=== PATIENT | female | born 1930 | race Caucasian/White ===

== ENCOUNTER 2017-09-03 06:37 | Day surgery (SDC) | payer MEDICARE ==
[~2017-09-03] VITALS: Ht 167.6 cm; Wt 54.7 kg
[~2017-09-03 06:37] MED LIST: ATOR20TA42; PREV30CA36
[2017-09-03] MEDS ORDERED: IOHEXOL 350 MG/ML 100 ML BTL (for Cath Lab) OTHER ONE (06:38)
[2017-09-03] MEDS ORDERED: IOHEXOL 350 MG/ML 10 ML VIAL (for RAD DIAG) IVCONTRAST ONE (06:38)
[2017-09-03] MEDS ORDERED: NS 1000P @30 MLS/HR (KVO) IV SCH (07:00)
[2017-09-03 07:29] VITALS: BP 124/85; PULSE 82; RESP 18; TEMP 98.1; O2SAT 93
[2017-09-03] MEDS ORDERED: diphenhydrAMINE HCL 50 MG/ML VIAL IV PUSH SCH (07:30)
[2017-09-03] MEDS ORDERED: METO25TA3 PO (07:37)
[2017-09-03] MEDS ORDERED: ASPI81CH37 CHEW (07:37)
[2017-09-03] MEDS ORDERED: FURO20TA PO (07:37)
[2017-09-03] MEDS ORDERED: CALC600T10 PO (07:37)
[2017-09-03] MEDS ORDERED: VITA250T3 PO (07:37)
[2017-09-03] MEDS ORDERED: CETI10CA3 (07:37)
[2017-09-03] MEDS ORDERED: OCUTTAB (07:37)
[2017-09-03] MEDS ORDERED: MULT-207 PO (07:37)
[2017-09-03] MEDS ORDERED: FLUT50SP EACH NARE (07:37)
[2017-09-03] MEDS ORDERED: FOLI400T PO (07:37)
[2017-09-03] MEDS ORDERED: LANS30CA PO (07:37)
[2017-09-03] MEDS ORDERED: ATOR10TA15 PO (07:37)
--- NOTE | 2017-09-03 09:41 | CATHPROC ---
[employer] HIS Report Study Information Study Number Admission Scheduled Start Study Start [id number] Sep 03 2017 6:37AM 09/03/2017 Sep 03 2017 8:36AM [place] Service Cardiac Catheterization Admit Source Facility Department Other [facility] Physician and Clinical Staff Initial Anatoliy Parker Dental Hygiene Professor Alfred Teague,RN Dental Hygiene Professor Judah Lacy,DERRELL Recorder Jaswinder, [place],LOOPING MACHINE OPERATOR TECH2 Scrub Viry Angel,RT(R) (BS) Procedures Performed Procedure Location (Site) Vessel Name Coronary Angiograms LCA Left Coronary Coronary Angiograms RCA Right Coronary Equipment Time Machine Assembler Supervisor Description Size Mfg Part Number Used/Scraped ARROW INTERNATIONAL CATHETER, FR.7 BALLOON [id number] 08:44 FR 7 Used INC. WEDGE PRESSURE *[id number] TRANSDUCER, TRAllPeersAVE [id number] 08:44 NICOLE ANDRADE * Used W/STOCKCOCK *[id number] [id number] *[id number] 534-620T *[id number] 534-621T *[id number] 08:44 MEDLINE INDUSTRIES PACK, CCL CUSTOM * Used *[id number] 08:44 [email or web address] PACER PEN, SKIN DUAL W/ RULER * Used *[id number] 08:45 [employer] MEDICAL SHEATH, FR6.5 PRELUDE 11CM FR 6.5 038ACT Used *[id number] 08:44 MERIT MEDICAL WIRE, 3MMJ .035 180CM 180CM Used *[id number] 09:15 MERIT MEDICAL WIRE, EXCHANGE 260CM 3MMJ 260CM Used *[id number] 08:44 NAMIC MANIFOLD, 2 PORT * Used *[id number] 08:44 NAMIC MANIFOLD, 4 PORT * Used *[id number] 08:44 NYCOMED OMNIPAQUE, 350 MG, 150ML 150ML [id number] Used [id number] 08:44 [employer] MED[employer] BLANKET,WARM AIR CCL * Used *[id number] 08:44 TERUMO MEDICAL SHEATH, FR7 TERUMO (10CM) FR 7 Used *[id number] 09:19 VASCULAR SOLUTIONS PIGTAIL DUAL LUMEN CATHETER FR 6 6968 *[id number] Used History: Current Medications Medication Dosage/Unit Route Frequency Last Date/Time Taken ASA Statins (any) LASIX LOPRESSOR History: Allergies Allergy Reaction shellfish derived Anaphylaxis fish oil History: Risk Factors Family History of Hypertension Dyslipidemia Previous [place] Previous Heart Failure Premature CAD Yes Yes Yes No No Prior Valve Prior PCI Prior CABG Surgery No No No Cerebrovascular Peripheral Artery Chronic Lung On Dialysis Diabetes Disease Disease Disease No No No No No History: Stress Tests Stress or Imaging Studies Performed No History: Other Current Smoker Method Quit Packs a Day Years Used Pack Years No Cigarettes 40 Years Ago 1 3 3 Labs Hgb (g/dl) Hct (%) WBC (l/cumm) Platelets (thousands) 11.60-17.00 35.00-51.00 4.00-11.00 150.00-450.00 12.2 37.6 6.3 202 Glucose (mg/dl) BUN (mg/dl) Creatinine (mg/dl) BUN:Creatinine (1:x) 74.00-106.00 7.00-18.00 0.50-1.30 10.00-20.00 127 22 0.8 27.5 Na (meq/l) K (meq/l) Cl (meq/l) CO2 (mmol/L) Ca (mg/dl) 136.00-145.00 3.50-5.10 98.00-107.00 21.00-32.00 8.50-10.10 143 4.7 102 27 9.1 PT (sec) INR (PTT:PT) 9.80-11.60 0.90-1.10 10.5 1 CPK-MB (ng/ML) 0.50-3.60 Not Drawn Medication Medication Total Dose (Bolus/Oral) Medication Total Dosage/Unit FENTANYL 50 mcg VERSED 2 mg Medications (Bolus/Oral) Medication Time Given Dosage/Unit Administered By Reason VERSED 09/03/2017 8:56:39 AM 1 mg Alfred Teague 1 mg VERSED given in lab by Alfred Teague RN in Left Antecubital via Peripheral IV. Ordered by Anatoliy Dominguez. FENTANYL 09/03/2017 8:57:52 AM 25 mcg Alfred Teague 25 mcg FENTANYL given in lab by Alfred Teague RN in Left Antecubital via Peripheral IV. Ordered by Anatoliy Stratton. VERSED 09/03/2017 9:03:02 AM 1 mg Alfred Teague 1 mg VERSED given in lab by Alfred Teague RN in Left Antecubital via Peripheral IV. Ordered by Anatoliy Dominguez. FENTANYL 09/03/2017 9:04:14 AM 25 mcg Alfred Teague 25 mcg FENTANYL given in lab by Alfred Teague RN in Left Antecubital via Peripheral IV. Ordered by Anatoliy Stratton. Medication (Drip) Medication Time Given Dosage/Unit Concentration/Unit Diluent (ml) Solution IV Solutions 09/03/2017 8:40:56 AM 0 mL (IV) 500 NaCl .9 Patient arrived on IV Solutions in Left Antecubital via Peripheral IV. Pump/Drip Flow = 20 ml/hr usin g NaCl .9. Initial Case Assessment Cardiovascular HR Rhythm NIBP Chest Pain 74 sr 146/78 0 Neurological State Oriented to time-place- Alert Moves all extremities person Respiration - General Respiration Rate SpO2 (%) (B/min) 10 98 Final Case Assessment Cardiovascular HR Rhythm NIBP Chest Pain 86 sr 129/73 0 Circulatory - Right Pulses Dorsalis Pedis Femoral 3 3 Scale (0,1,2,3,4,d) Circulatory - Left Pulses Dorsalis Pedis Femoral 3 3 Scale (0,1,2,3,4,d) Neurological State Oriented to time-place- Alert Moves all extremities person Respiration - General Respiration Rate SpO2 (%) O2 (lpm) (B/min) 14 96 2 Chronological Log Time Study Chronological Log 8:40:25 Patient arrived via Bed. Patient premedicated for shellfish allergy. 8:40:26 Patient Name, D.O.B, / Armband Verified By R.N. 8:40:26 Consent signed by the physician and the patient and verified by the [facility] staff. 8:40:27 Pre-op and post- op instructions given; patient acknowledges understanding of instructions. 8:40:44 Presedation assessment performed by [facility] RN. 8:40:48 Patient has been NPO for Less than 6Hrs. 8:40:50 Skin Breakdown-none 8:40:51 Patient Warmer Placed on the Table. 8:40:55 A # 20 IV was noted in the Antecubital (left). Grade = patent 8:40:56 Patient arrived on IV Solutions in Left Antecubital via Peripheral IV. Pump/Drip Flow = 20 m l/hr using NaCl .9. 8:40:57 History and physical on the chart or being dictated. Vitals capture started with the following parameters, Patient=Adult, Interval=5 min, Initial Pre djepm=905 mmHg, 8:44:09 Deflation Rate=5 mmHg, Cuff placed on Right Arm 8:44:45 HR=84 bpm, BAIA=629/78 mmhg, SpO2=96 %, Resp=12 B/min Assessment: Initial Case, HR=74 BPM, Rhythm=sr, ZSZR=024/78 mmhg, Chest Pain=0 8:44:58 Neurological: State=Alert, Ox3, MARTIN Respiration: Resp=10 B/min, SpO2=98 % 8:46:51 Reference ECG taken 8:49:44 HR=88 bpm, BCPS=845/79 mmhg, SpO2=97.0 %, Resp=10 B/min 8:51:58 Bilateral groins prepped with 2% chlorhexidine, and draped after a 3 minute waiting time. 8:54:45 HR=83 bpm, UQUT=075/74 mmhg, SpO2=98.0 %, Resp=11 B/min 8:55:35 MD arrived. 8:56:39 1 mg VERSED given in lab by Alfred Teague RN in Left Antecubital via Peripheral IV. Ordered by Anatoliy Dominguez. 8:57:52 25 mcg FENTANYL given in lab by Alfred Teague RN in Left Antecubital via Peripheral IV. Ord ered by Anatoliy Dominguez. 8:59:42 HR=80 bpm, HPGC=281/74 mmhg, SpO2=90.0 %, Resp=14 B/min Time Out. Correct patient, correct procedure, correct physician, power injector loaded, or not l oaded with contrast with 9:00:18 surgical team present. Time Out Concurred by MD and individual staff in procedure. 9:01:32 Pressure channel 1 zeroed. 9:02:23 Pressure channel 2 zeroed. 9:03:02 1 mg VERSED given in lab by Alfred Teague RN in Left Antecubital via Peripheral IV. Ordered by Anatoliy Dominguez. 9:03:56 Access site was Right Femoral Artery. 9:04:14 25 mcg FENTANYL given in lab by Alfred Teague RN in Left Antecubital via Peripheral IV. Ord ered by Anatoliy Dominguez. 9:04:18 A SHEATH, FR6.5 PRELUDE 11CM FR 6.5 was advanced into the Fem Art (right) using the Percutan eous technique. 9:04:43 Access site was Right Femoral Vein. 9:04:45 HR=82 bpm, VUNX=505/63 mmhg, SpO2=95.0 %, Resp=18 B/min 9:05:03 A SHEATH, FR7 TERUMO (10CM) FR 7 was advanced into the Fem Vein (right) using the Percutaneo us technique. 9:07:17 A CATHETER, FR.7 BALLOON WEDGE PRESSURE FR 7 was inserted via Fem Vein (right) Recorded Pressure: RA, HR=82, Condition=Condition 1 9:07:47 (Right Atrium) RA 42/1 Recorded Pressure: RV, HR=84, Condition=Condition 1 9:08:15 (Right Ventricle) RV 31//4 Recorded Pressure: MPA, HR=82, Condition=Condition 1 9:09:21 (Main Pulmonary Artery) MPA 27/13/19 9:09:42 HR=80 bpm, HGZP=642/67 mmhg, SpO2=93.0 %, Resp=16 B/min Recorded Pressure: PCW, HR=81, Condition=Condition 1 9:10:19 (Pulmonary Capillary Wedge) PCW 12/8/9 Saturation: Site=RFA (Right Femoral Artery) , O2=96.4 %, Hgb=12.2 gm/dl, Condition=Condition 1. Used in 9:11:16 calculation. Recorded Pressure: RV, HR=87, Condition=Condition 1 9:11:53 (Right Ventricle) RV 39/2/5 Saturation: Site=MPA (Main Pulmonary Artery) , O2=78.7 %, Hgb=12.2 gm/dl, Condition=Condition 1. Used in 9:12:11 calculation. 9:14:00 [place] Catheter Removed 9:14:17 Pressure channel 1 zeroed. 9:14:24 Pressure channel 2 zeroed. 9:14:41 HR=83 bpm, ZLKC=106/73 mmhg, SpO2=95.0 %, Resp=15 B/min A AL 1 INFINITI CATHETER FR 6 was advanced over a wire. OMNIPAQUE, 350 MG, 150ML 150ML was used for :14:41 injections. After removing the current catheter a PIGTAIL DUAL LUMEN CATHETER FR 6 was advanced over a WIRE , EXCHANGE 9:17:53 260CM 3MMJ 260CM. 9:19:40 HR=84 bpm, QLOE=772/72 mmhg, SpO2=96.0 %, Resp=15 B/min Recorded Pressure: LV, Ao, HR=85, Condition=Condition 1 9:19:53 (Left Ventricle) LV 218/4/9, (Aorta) Ao 128/65/93 Recorded Pressure: LV, Ao, Ao, HR=83, Condition=Condition 1 (Left Ventricle) LV 205/2/8, 9:20:28 (Aorta) Ao 130/59/91, (Aorta) Ao 122/61/88 9:21:25 Catheter was removed A JL 4.0 INFINITI CATHETER FR 6 was advanced over a wire. OMNIPAQUE, 350 MG, 150ML 150ML was us ed for 9:22:29 injections. 9:23:43 The LCA was injected and visualized at various angles. OMNIPAQUE, 350 MG, 150ML 150ML used . 9:24:43 HR=85 bpm, PCFG=931/66 mmhg, SpO2=96.0 %, Resp=14 B/min After removing the current catheter a JR 4.0 INFINITI CATHETER FR 6 was advanced over a WIRE, 3 MMJ .035 180CM 9:27:41 180CM. 9:28:33 The RCA was injected and visualized at various angles. OMNIPAQUE, 350 MG, 150ML 150ML used . 9:29:44 HR=87 bpm, BPRZ=620/73 mmhg, SpO2=96.0 %, Resp=15 B/min 9:30:04 Catheter was removed 9:30:06 Case End Assessment: Final Case, HR=86 BPM, Rhythm=sr, VFXZ=736/73 mmhg, Chest Pain=0 Right Pulses: Carlos Ped=3, Femoral=3 9:30:13 Left Pulses: Carlos Ped=3, Femoral=3 Neurological: State=Alert, Ox3, MARTIN Respiration: Resp=14 B/min, SpO2=96 %, O2=2 lpm 9:31:01 Sheath(s) left in place, will be removed in Holding Area 9:31:05 Sterile dressing applied to site 9:31:06 No case complications noted. 9:31:08 Cine recording checked. 9:31:10 Bedside Report will be given. 9:34:43 HR=84 bpm, IRDP=376/76 mmhg, SpO2=97.0 %, Resp=16 B/min 9:38:12 Vitals capture stopped. 9:38:16 Patient moved to stretcher 9:39:20 Patient transported to DOCU. End Study - Contrast Media Used In Study Contrast Total Opened (mL) Total Used (mL) Total Wasted (mL) Omnipaque 70 70 0 End Study - Maximum Contrast Load Max Contrast Load (mL) 341.8 End Study - Radiation Exposure Fluoro Time (minutes) 7.0 End Study - Patient Disposition Complications Transferred To Interventional Outcome No Telemetry Bed No attempt made
[2017-09-03] MEDS ORDERED: LIDOCAINE HCL 1% 50 ML VIAL INFIL PRN (09:45)
[2017-09-03] MEDS ORDERED: ATROPINE SULFATE 1 MG/ML VIAL IV PUSH PRN (09:45)
[2017-09-03] MEDS ORDERED: SODIUM CHLOR 0.9% 250 ML INJ 250 ML IV PRN (09:45)
[2017-09-03] MEDS ORDERED: BACITRACIN OINT 0.9 GM PKT TOP ONE (09:45)
[2017-09-03] MEDS ORDERED: ONDANSETRON HCL 4 MG/2 ML VIAL IV PUSH PRN (09:45)
[2017-09-03] MEDS ORDERED: MISC INFORMATION XX ONE (09:45)
[2017-09-03] MEDS ORDERED: METOCLOPRAMIDE HCL 10 MG/2 ML VIAL IV PUSH PRN (09:45)
[2017-09-03] MEDS ORDERED: LORazepam 2 MG/ML VIAL IV PUSH PRN (09:45)
--- NOTE | 2017-09-03 10:17 | MA ---
cc: RAMIROESTHERCAREN DATE: 09/03/2017 INDICATION Aortic stenosis. PROCEDURE PERFORMED 1. Fluoroscopy with interpretation. 2. Right heart catheterization. 3. Left heart catheterization. 4. Coronary angiography. METHOD The risks, benefits and alternatives were discussed with the patient. The patient understood and consented to the procedure. PROCEDURE The patient was brought to the catheterization lab and placed on the catheterization table. The right groin was prepped and draped in a sterile fashion. The right groin was anesthetized with 2% lidocaine. The right common femoral artery was cannulated and a 6 [place], 11 cm sheath placed without difficulty. The right femoral vein was accessed and a 7 [place]une[place], 11 cm sheath was placed without difficulty. RIGHT HEART CATHETERIZATION A 7 [place] pulmonary catheter was advanced through the right femoral venous sheath to the level of the right atrium under fluoroscopic guidance. Hemodynamics were performed in all chambers while advancing to the pulmonary capillary wedge position. Hemodynamics were as follows: 1. Right atrial pressure measured 4 mmHg. 2. Right ventricular pressure measured 39/2 mmHg. 3. Pulmonary arterial pressure measured 27/13 mmHg. 4. Pulmonary capillary wedge pressure measured 8 mmHg. 5. Cardiac output 6.0 liters per minute. 6. Cardiac index 4.3 liters per minute per meter squared. LEFT HEART CATHETERIZATION A 6 [place]uneian AL-1 was used With a straight wire to advance across the aortic valve. A 6-Bruneian lengthening catheter was then advanced into the left ventricle for simultaneous left ventricular and aortic pressures. Hemodynamics were as follows: 1. Left ventricular pressure measured 205/2 mmHg. 2. Left ventricular end-diastolic pressure measured 8 mmHg. 3. Aortic pressure measured 130/59 mmHg. 4. Mean aortic valve gradient measured 70 mmHg. 5. Aortic valve area is 0.6 centimeters squared. CORONARY ANGIOGRAPHY 1. The left main coronary is very short but angiographically normal. 2. The left anterior descending coronary artery has some minor luminal irregularities proximally, otherwise angiographically normal. 3. The circumflex is a large caliber size giving rise to two obtuse marginal branches. There is a 30% stenosis in the mid circumflex. 4. The right coronary is a large dominant vessel and has minor luminal irregularities. CONCLUSIONS 1. Severe aortic valve stenosis. 2. Normal left and right-sided filling pressures. 3. Normal cardiac output and index. 4. Normal pulmonary pressures. 5. Mild nonobstructive coronary artery disease. PLAN Will monitor closely for any post-procedural complications. Will have sheaths removed. Will get a CT surgical consultation to evaluate her candidacy for traditional aortic valve replacement versus transcatheter aortic valve replacement. MD GUIDO Mckeon/CARLOS /9:34 AM /10:02 AM NAVDEEP
--- NOTE | 2017-09-03 12:18 | PD.CONS ---
History of Present Illness Service CT Surgery Consult Requested By Dr. Dominguez Reason for Consult Severe symptomatic aortic stenosis, diastolic heart failure, chest pain Primary Care Physician Non-Staff Diagnoses: (1) Aortic stenosis (2) Diastolic CHF due to valvular disease (3) Chest pain History of Present Illness 86 y/o female presents with ~2 month h/o progressive exertional dyspnea and chest pressure/pain. She was evaluated and found to have severe with a mean gradient of 70mm Hg and a RUBIN~0.6 cm2. She has known about her aortic valve disease for many years, but has been asymptomatic until recently. She denies palpitations, PND, and orthopnea. Review of Systems Constitutional: COMPLAINS OF: Fatigue, DENIES: Diaphoretic episodes, Fever, Weight gain, Weight loss, Chills, Dizziness, Change in appetite, Night Sweats Endocrine: DENIES: Abnorml menstrual pattern, Heat/cold intolerance, Polydipsia , Polyuria, Polyphagia Eyes: DENIES: Blurred vision, Diplopia, Eye inflammation, Eye pain, Vision loss , Photosensitivity, Double Vision Ears, nose, mouth, throat: DENIES: Tinnitus, Hearing loss, Vertigo, Nasal discharge, Oral lesions, Throat pain, Hoarseness, Ear Pain, Running Nose, Epistaxis, Sinus Pain, Toothache, Odynophagia Respiratory: DENIES: Apneas, Cough, Snoring, Wheezing, Hemoptysis, Sputum production, Shortness of breath Cardiovascular: COMPLAINS OF: Chest pain, Dyspnea on Exertion, DENIES: Palpitations, Syncope, PND, Lower Extremity Edema, Orthopnea, Claudication Gastrointestinal: DENIES: Abdominal pain, Black stools, Bloody stools, Constipation, Diarrhea, Nausea, Vomiting, Difficulty Swallowing, Anorexia Genitourinary: DENIES: Abnormal vaginal bleeding, Dysmenorrhea, Dyspareunia, Sexual dysfunction, Urinary frequency, Urinary incontinence, Urgency, Hematuria , Dysuria, Nocturia, Vaginal discharge Musculoskeletal: COMPLAINS OF: Stiffness, DENIES: Joint pain, Muscle aches, Joint Swelling, Back pain, Neck pain Integumentary: DENIES: Abnormal pigmentation, Pruritus, Rash, Nail changes, Breast masses, Breast skin changes, Nipple discharge Hematologic/lymphatic: DENIES: Bruising, Lymphadenopathy Immunologic/allergic: DENIES: Eczema, Urticaria Neurologic: DENIES: Abnormal gait, Headache, Localized weakness, Paresthesias, Seizures, Speech Problems, Tremor, Poor Balance Psychiatric: DENIES: Anxiety, Confusion, Mood changes, Depression, Hallucinations, Agitation, Suicidal Ideation, Homicidal Ideation, Delusions Past Family Social History Allergies: Coded Allergies: shellfish derived (Unverified Allergy, Severe, Anaphylaxis, 09/03/17) fish oil (Verified Allergy, Unknown, 09/03/17) Past Medical History arthritis GERD Hyperlipidemia osteoporosis Past Surgical History Appendectomy Colonoscopy Tubal ligation Shoulder procedure Reported Medications ASA Lipitor Calcium Fluticasone Folic acid Lasix Lansoprazole Lopressor Vitamins Zyrtec Family History Stroke, RA, CAD, Alzheimer, CHF Social History Remote smoker OCC ETOH , 3 grown children 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 SKIN: No rashes, ecchymoses or lesions. Cool and dry. HEAD: Atraumatic. Normocephalic. No temporal or scalp tenderness. EYES: Pupils equal round and reactive. Extraocular motions intact. No scleral icterus. No injection or drainage. ENT: Nose without bleeding, purulent drainage or septal hematoma. Throat without erythema, tonsillar hypertrophy or exudate. Uvula midline. Airway patent. NECK: Trachea midline. No JVD or lymphadenopathy. Supple, nontender, no meningeal signs. CARDIOVASCULAR: Regular rate and rhythm with 3/6 KURT RUSB. RESPIRATORY: Clear to auscultation. Breath sounds equal bilaterally. No wheezes , rales, or rhonchi. GASTROINTESTINAL: Abdomen soft, non-tender, nondistended. No hepato-splenomegaly , or palpable masses. No guarding. MUSCULOSKELETAL: Extremities without clubbing, cyanosis, or edema. No joint tenderness, effusion, or edema noted. No calf tenderness. Negative Homans sign bilaterally. NEUROLOGICAL: Awake and alert. Cranial nerves II through XII intact. Motor and sensory grossly within normal limits. Five out of 5 muscle strength in all muscle groups. Normal speech. Laboratory Laboratory Tests Test 09/03/17 07:08 Albumin 3.7 Course s/p left and right heart cath today. Stable Assessment and Plan Problem List: (1) Aortic stenosis ICD Codes: I35.0 - Nonrheumatic aortic (valve) stenosis (2) Chest pain ICD Codes: R07.9 - Chest pain, unspecified (3) Diastolic CHF due to valvular disease ICD Codes: I38 - Endocarditis, valve unspecified; I50.30 - Unspecified diastolic (congestive) heart failure Assessment and Plan 86y/o female presents with severe symptomatic aortic stenosis. Her STS risk profile is as follows: Risk Model and Variables - STS Adult Cardiac Surgery Database Version 2.81 RISK SCORES About the STS Risk Calculator Procedure: AV Replacement Risk of Mortality: 4.08% Morbidity or Mortality: 19.739% Long Length of Stay: 8.762% Short Length of Stay: 24.371% Permanent Stroke: 2.288% Prolonged Ventilation: 13.181% DSW Infection: 0.143% Renal Failure: 4.598% Reoperation: 8.054% She is an intermediate risk patient for SAVR and would likely benefit from TAVR. I discussed this with her and she is agreeable to proceed. Problem Qualifiers (1) Aortic stenosis: Qualified Codes: I35.0 - Nonrheumatic aortic (valve) stenosis (2) Chest pain: Qualified Codes: R07.9 - Chest pain, unspecified Precious Lackey MD Sep 03, 2017 12:18
--- NOTE | 2017-09-03 16:28 | EKG ---
Date Performed: 09/03/2017 Time Performed: 07:40:46 PTAGE: 86 years EKG: Sinus rhythm . Possible left atrial abnormality Possible septal infarct - age undetermined Abnormal ECG NO PREVIOUS TRACING DOCTOR: Karthikeyan Rebollar Interpretating Date/Time 09/03/2017 16:27:03
--- NOTE | 2017-09-03 17:19 | RADRPT ---
EXAM DATE/TIME: 09/03/2017 14:13 [facility] COMPARISON: No previous studies available for comparison. INDICATIONS : Valve replacement IV CONTRAST: 100 cc Omnipaque 350 (iohexol) IV RADIATION DOSE: 8.75 CTDIvol (mGy) MEDICAL HISTORY : Arthritis. Cardiovascular disease SURGICAL HISTORY : Appendectomy. Tubal ligation.sHOULDER PROCEDURE ENCOUNTER: Initial ACUITY: 1 day PAIN SCALE: 0/10 LOCATION: TAVR TECHNIQUE: Volumetric scanning was performed using a multi-row detector CT scanner. The data was post processed with a variety of visualization algorithms including full volume maximum intensity projection, multi -planar sliding thin slab reformation, curved planar reformation, and surface rendering techniques. Using automated exposure control and adjustment of the mA and/or kV according to patient size, radiat ion dose was kept as low as reasonably achievable to obtain optimal diagnostic quality images. DIC OM format image data is available electronically for review and comparison. FINDINGS: CARDIAC: The coronary system is right dominant. Coronary artery calcifications are present. There is no peric ardial effusion AORTIC ROOT/VALVE: 3 cusps are evident with extensive calcifications. The aortic root measures 35 mm. Mid thoracic aorta measures 23 with calcifications. THORACIC AORTA: Origin of the great vessels is normal. No evidence of aneurysm, mural thrombus, dissection, mural ca lcification, or stenosis. ABDOMINAL AORTA: No evidence of aneurysm, mural thrombus, dissection, mural calcification, or stenosis. CELIAC ARTERY: There is impression on the celiac axis from the arcuate ligament. SMA: Superior mesenteric artery is widely patent. RIGHT RENAL ARTERY: There is 30-40% stenosis at the origin the right renal artery LEFT RENAL ARTERY: There is 40-50% stenosis at the origin of the left renal artery. RIGHT COMMON ILIAC: No evidence of aneurysm, mural thrombus, dissection, mural calcification, or stenosis. The common fe moral measures 11. LEFT COMMON ILIAC: No evidence of aneurysm, mural thrombus, dissection, mural calcification, or stenosis. The common fe moral measures 11. THORAX: A large hiatal hernia is present. ABDOMEN: No acute process is identified PELVIS: There is diverticulosis without evidence of diverticulitis. CONCLUSION: 1. Vascular measurements as above 2. Large hiatal hernia 3. Diverticulosis without evidence of diverticulitis. Charlie Dickey MD on September 03, 2017 at 17:09 Board Certified Radiologist. This report was verified electronically.
--- NOTE | 2017-09-03 17:25 | RADRPT ---
EXAM DATE/TIME: 09/03/2017 16:53 [facility] COMPARISON: No previous studies available for comparison. INDICATIONS : Evaluate for pneumonia, pneumothorax, or other communicable disease. Pre-op. MEDICAL HISTORY : None. SURGICAL HISTORY : None. ENCOUNTER: Initial ACUITY: 1 day PAIN SCORE: 0/10 LOCATION: Bilateral chest FINDINGS: Large retrocardiac density is characteristic of a hiatal hernia. Lungs are hyperinflated but clear. Heart is mildly enlarged. CONCLUSION: No acute disease. Moderate to large hiatal hernia. COPD Johnathan Easley MD on September 03, 2017 at 17:23 Board Certified Radiologist. This report was verified electronically.
--- NOTE | 2017-09-04 14:15 | ECHRPT ---
Indication: Nonrheumatic aortic (valve) stenosis CONCLUSIONS BP: / HR: 85 Rhythm: Other MEASUREMENTS (Male / Female) Normal Values Technical Quality:Fair 2D ECHO LV Diastolic Diameter PLAX 3.0 cm 4.2 - 5.9 / 3.9 - 5.3 cm LV Systolic Diameter PLAX 2.3 cm IVS Diastolic Thickness 1.5 cm 0.6 - 1.0 / 0.6 - 0.9 cm LVPW Diastolic Thickness 1.4 cm 0.6 - 1.0 / 0.6 - 0.9 cm LV Relative Wall Thickness 1.0 LVOT Diameter 2.0 cm M-MODE Aortic Root Diameter MM 2.6 cm LA Systolic Diameter MM 3.2 cm LA Ao Ratio MM 1.2 AV Cusp Separation MM 1.5 cm DOPPLER AV Peak Velocity 547.0 cm/s AV Peak Gradient 119.7 mmHg AV Mean Gradient 84.4 mmHg AV Velocity Time Integral 131.6 cm AI Peak Velocity 335.0 cm/s AI Peak Gradient 44.9 mmHg AI Pressure Half Time 456.0 ms LVOT Peak Velocity 112.0 cm/s LVOT Peak Gradient 5.0 mmHg AV Area Cont Eq pk 0.6 cm MV Peak Velocity 236.0 cm/s MV Peak Gradient 22.3 mmHg MV Mean Velocity 135.0 cm/s MV Mean Gradient 9.0 mmHg MV Area PHT 3.4 cm Mitral E Point Velocity 119.0 cm/s Mitral A Point Velocity 216.0 cm/s Mitral E to A Ratio 0.6 TR Peak Velocity 358.0 cm/s TR Peak Gradient 51.3 mmHg Right Atrial Pressure 10.0 mmHg Pulmonary Artery Systolic Pressu 61.3 mmHg Right Ventricular Systolic Press 61.3 mmHg PV Peak Velocity 274.0 cm/s PV Peak Gradient 30.0 mmHg FINDINGS LEFT VENTRICLE The left ventricular systolic function is normal with an estimated ejection fraction in the range of 55-60%. Mild concentric left ventricular hypertrophy. Normal left ventricular size. RIGHT VENTRICLE Normal right ventricular size and systolic function. LEFT ATRIUM The left atrial size is normal. RIGHT ATRIUM The right atrial size is normal. ATRIAL SEPTUM Normal atrial septal thickness without atrial level shunting by limited color doppler interrogation. AORTA The aortic root and proximal ascending aorta are normal in size on limited imaging. MITRAL VALVE Mild mitral annular calcification. AORTIC VALVE Trileaflet aortic valve. Mild thickening of the aortic valve leaflets. Diffuse calcification of the aortic valve. Trace aortic valve regurgitation. Severe aortic valve stenosis. Aortic valve area is 0.6 cm. Aortic valve mean gradient is 84.4 mmHg. TRICUSPID VALVE There is moderate tricuspid regurgitation. The estimated pulmonary arterial pressure is 61.3 mmHg. PULMONARY VALVE No pulmonary valve regurgitation or stenosis. VESSELS The inferior vena cava is normal in size. PERICARDIUM No pericardial effusion. Anatoliy Dominguez MD, FACC (Electronically Signed) Final Date:04 September 2017 14:14
--- NOTE | 2017-09-06 11:53 | RSPPFT ---
DATE OF PROCEDURE: 09/03/17 COMMENTS: Spirometry with FVC of 2.1 predicted 2.5, FEV1 of 1.5 predicted 1.7, FEV1/FVC ratio 72% predicted 80%. IMPRESSION: Spirometry is within the predicted range.
== END 2017-09-03 17:02 | disposition home or self-care (01) ==
LOC: HDOC 06:37 → HDIC 06:38 → HDOC 17:02
PROVIDERS: ATTEND Internal Medicine
DX: I35.0 Nonrheumatic aortic (valve) stenosis (principal); I25.10 Atherosclerotic heart disease of native coronary artery without angina pectoris; R94.31 Abnormal electrocardiogram [ECG] [EKG]; I50.30 Unspecified diastolic (congestive) heart failure; I38 Endocarditis, valve unspecified; I05.9 Rheumatic mitral valve disease, unspecified; J44.9 Chronic obstructive pulmonary disease, unspecified; M06.9 Rheumatoid arthritis, unspecified; G30.9 Alzheimer's disease, unspecified; F02.80 Dementia in other diseases classified elsewhere, unspecified severity, without behavioral disturbance, psychotic disturbance, mood disturbance, and anxiety; E78.5 Hyperlipidemia, unspecified; K21.9 Gastro-esophageal reflux disease without esophagitis; K44.9 Diaphragmatic hernia without obstruction or gangrene; M19.90 Unspecified osteoarthritis, unspecified site; M81.0 Age-related osteoporosis without current pathological fracture; Z79.899 Other long term (current) drug therapy; Z79.82 Long term (current) use of aspirin; Z87.891 Personal history of nicotine dependence; Z01.818 Encounter for other preprocedural examination; Z01.811 Encounter for preprocedural respiratory examination; Z86.73 Personal history of transient ischemic attack (TIA), and cerebral infarction without residual deficits
CPT/HCPCS: 71010; 74174; 82040; 82810; 86850; 86900; 86901; 93005; 93306; 93456; 94010; C1769; C1893; Q9967

== ENCOUNTER 2019-01-22 06:49 | Inpatient (IN) ==
[2019-01-22] MEDS ORDERED: Chlorhexidine 4% Topical 120 APPLIC/120 ML Bottle TOPICAL SCH (07:30)
[2019-01-22] MEDS ORDERED: Chlorhexidine Gluconate 2% 1 Pack (2 Cloths) TOPICAL ONE (07:45)
[2019-01-22] MEDS ORDERED: Sodium Chlor 0.9% Inj 500 ML IV.CONT ONE (07:45)
[2019-01-22] MEDS ORDERED: Metoprolol Tartrate 25 MG Tablet PO ONE (07:45)
[2019-01-22] MEDS ORDERED: Vancomycin Inj 1,000 MG in Sodium Chlor 0.9% Inj 250 ML IV.SIG SCH (08:00)
[2019-01-22] MEDS ORDERED: TRANEXAMIC ACID IV.SIG SCH ×2 (08:00→11:00)
[2019-01-22] MEDS ORDERED: SODIUM CHLOR 0.9% IV.SIG SCH ×2 (08:00→11:00)
[2019-01-22] MEDS ORDERED: Sodium Chlor 0.9% Inj 40 ML, Bupivacaine Liposo PF 1.3% Inj 20 ML, Bupivacaine/Epi PF 0... P-ARTICULR SCH ×3 (08:00)
[2019-01-22] MEDS ORDERED: ceFAZolin 2 GM Premix Inj 2 GM/50 ML PIGGYBACK IV.SIG SCH (08:00)
[2019-01-22] MEDS ORDERED: Ropivacaine 0.5% PF Inj 20 ML Vial ONE (09:29)
[2019-01-22] MEDS ORDERED: fentaNYL Citrate Inj 100 MCG/2 ML Ampul ONE (09:37)
[2019-01-22] MEDS ORDERED: Famotidine PF Inj 20 MG/2 ML Vial ONE (09:37)
[2019-01-22] MEDS ORDERED: Neostigmine Inj 5 MG/5 ML Syringe IV.PUSH ONE (10:01)
[2019-01-22] MEDS ORDERED: Glycopyrrolate Inj 1 MG/5 ML Syringe IV.PUSH ONE (10:01)
[2019-01-22] MEDS ORDERED: Lidocaine PF 1% Inj 5 ML Syringe INFILTRATN ONE (10:01)
[2019-01-22] MEDS ORDERED: Phenylephrine/NS 1000 MCG/10ML Syringe IV.PUSH ONE (10:01)
[2019-01-22] MEDS ORDERED: Post-op Orders (for Pharmacy) OTHER STA (11:03)
[2019-01-22] MEDS ORDERED: Bisacodyl 10 MG Supp RECTAL PRN (11:03)
[2019-01-22] MEDS ORDERED: Aluminum/Magnesium/Simethacone Susp 30 ML UDC PO PRN (12:45)
--- NOTE | 2019-01-22 13:14 | P.OP ---
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 She had a regional block performed in the preop holding area. The left shoulder was prepped and draped in usual sterile fashion. IV antibiotics were given. Timeout was completed. Anterior approach to the shoulder using the deltopectoral interval was performed with the cephalic vein medialized and the deltoid lateralized. Dissection of the deltoid removing scar tissue and then exposing the prominent internal fixation was performed and then proceeded with removal the one screw and then additional dissection and identifying the second screw and then proceeding with removal of the screw. The Compete instrumentation was available for screw removal. At this point we proceeded to remove scar tissue in the subacromial space. We mobilized the conjoined tendon and and retracted this medially. We palpated along the subscapularis tendon. We identified a traumatic sinus scar tissue inferiorly and identified the position of the axillary nerve and what we believed to be the axillary nerve. We proceeded to take down the subscapularis and tagged with #2 FiberWire for later repair. We dissected along the inferior neck of the humerus to allow improve mobilization. We dissected a tremendous amount of scar tissue which was anterior to and superior to the axillary nerve. There was bone hypertrophy and this area and tremendous amount of scar tissue and it is scarred down very tight to the axillary nerve. Meticulous dissection occurred which ultimately resulted in improvement in range of motion of the shoulder and allow us to proceed with the surgery. We used the proximal humerus guide to make a 30 degree angle retroverted cut. We then placed deep retractors to expose our glenoid. We identified the angulation of the glenoid and proceeded with our guide for placement of our baseplate. We proceeded with tap and then overreamed this and then proceeded with placement of our standard glenoid baseplate and we proceeded with 4 locking screws 2 38 and 2 14mm screws. We impacted the 32-4 glenoid sphere and locked this centrally. At this point attention was drawn to the proximal humerus and we used osteotomes to create a central canal and then proceeded with our sequential reamings and distally this went to 10 and then proximally we continue to use the reamers to a higher number as our broaches were not going down we then proceeded with broaching and we broached up to size 8. We then proceeded to perform reaming and do a trial 8 and we proceeded to reduce and we noted still some limited range of motion and therefore more dissection to remove additional scar tissue was performed and then overall we are satisfied with the range of motion of forward elevation and 90 degrees. External rotation 50 degrees internal rotation full. We did note some slight movement of the stem and therefore we did use one batch of cement was cemented proximally on the humerus. Our implant was placed with 30 degrees retroversion R standard polyethylene was impacted in place excellent rate stabilization noted. Irrigated out copious amounts of irrigation we did repair the subscapularis although this was somewhat of a tenuous repair. We then again irrigated out and then proceeded closed in layers absorbable suture with septically on the skin. Steri-Strips were applied. Sterile dressing was applied. Shoulder immobilizer was applied. The patient was awoken returned to recovery room in stable condition. The first crusher is advanced registered nurse practitioner. His skill set was medically necessary for the performance of the operation.
--- NOTE | 2019-01-22 13:51 | XR ---
EXAM DATE: 01/22/2019 1:43 PM EST AGE/SEX: 88 years / Female INDICATIONS: Post hardware placement left shoulder CLINICAL DATA: This is the patient's initial encounter. Patient reports that signs and symptoms have been present for 1 day and indicates a pain score of Nonresponsive. MEDICAL/SURGICAL HISTORY: Non-responsive. Non-responsive. COMPARISON: No prior exams available for comparison. FINDINGS: 2 views left shoulder were obtained and demonstrate that the patient is status post arthroplasty. The humeral and glenoid components are intact and in normal alignment. There is overlying soft tissue sw elling and gas. There is mild osteopenia. CONCLUSION: Expected postoperative changes status post left shoulder arthroplasty. Electronically signed by: Hesham Quintanilla MD Board Certified Radiologist 01/22/2019 1:49 PM EST
[2019-01-22] MEDS ORDERED: ceFAZolin Inj 1 GM Vial (Addvantage) IV.SIG ONE (16:15)
[2019-01-22] MEDS ORDERED: Sodium Chlor 0.9% Inj 100 ML ONE (16:16)
[2019-01-22] MEDS: HYDROmorphone PF Inj 1 MG/ML Ampul IV.PUSH PRN ×2 (19:20→23:30)
[2019-01-22] MEDS: Senna/Docusate Sodium 8.6/50 MG Tablet PO SCH (21:08)
[2019-01-22] MEDS: Metoprolol Tartrate 25 MG Tablet PO SCH (21:08)
[2019-01-22] MEDS: Multivitamin/Minerals Therapeutic Tablet PO SCH (21:08)
[2019-01-23 05:12] LABS: Hematocrit 32.5 % (35.0-46.0); Hemoglobin 10.8 gm/dL (11.6-15.3)
[2019-01-23] MEDS: HYDROmorphone PF Inj 1 MG/ML Ampul IV.PUSH PRN (05:54)
--- NOTE | 2019-01-23 07:48 | P.PNOP ---
Subjective Interval history: Patient comfortable. Pain controlled. Physical Exam Vital signs: Vital Signs 01/22/19 08:13 01/22/19 08:28 01/22/19 09:48 Temperature 97.7 F Pulse Rate 54 L 60 56 L Respiratory Rate 18 18 Blood Pressure 163/60 H 154/74 H Pulse Oximetry 96 100 100 01/22/19 13:12 01/22/19 13:15 01/22/19 13:30 Temperature 97.6 F Pulse Rate 99 H 94 H 84 Respiratory Rate 17 18 Blood Pressure 147/67 H 127/59 L 116/56 L Pulse Oximetry 98 98 95 01/22/19 13:45 01/22/19 14:00 01/22/19 14:15 Temperature 97.6 F Pulse Rate 78 79 75 Respiratory Rate 15 13 14 Blood Pressure 112/54 L 107/55 L 109/53 L Pulse Oximetry 97 100 100 01/22/19 15:00 01/22/19 15:30 01/22/19 16:00 Temperature Pulse Rate 73 84 Respiratory Rate 17 18 Blood Pressure 115/54 L 113/56 L Pulse Oximetry 97 95 95 01/22/19 16:30 01/22/19 17:19 01/22/19 20:00 Temperature 98.6 F 97.6 F 97.9 F Pulse Rate 85 92 H 109 H Respiratory Rate 20 17 16 Blood Pressure 118/58 L 125/62 157/71 H Pulse Oximetry 95 95 93 L 01/22/19 21:07 01/23/19 00:06 01/23/19 00:34 Temperature 97.8 F Pulse Rate 95 H Respiratory Rate 16 16 16 Blood Pressure 128/56 L Pulse Oximetry 94 L 01/23/19 06:09 Temperature Pulse Rate Respiratory Rate 16 Blood Pressure Pulse Oximetry Intake & Output 01/22/19 01/23/19 01/23/19 18:59 06:59 18:59 Intake Total 2805.63 / 2805.63 100 / 100 Output Total 100 / 100 Balance 2705.63 / 2705.63 100 / 100 Weight 56.3 kg Intake: IV 1505.63 / 1505.63 100 / 100 LR 1000 mL Inj 1,000 ML @ 30 1000 / 1000 mls/hr IV.CONT .Q24H ONE Rx#: [id number] Cyklokapron Inj 563 MG In NS 105.63 / 105.63 Inj 100 ML @ 200 mls/hr IV.SIG ONCE KATIE Rx#:[id number] Vancomycin Inj 1,000 MG In NS 250 / 250 Inj 250 ML @ 250 mls/hr IV.SIG WELT INSOLE CHANNELER KATIE Rx#:[id number] Ancef 2 GM Premix Inj 2 gm In 50 / 50 50 ml @ 100 mls/hr IV.SIG WELT INSOLE CHANNELER KATIE Rx#:[id number] Ancef Inj 1,000 MG In NS Inj 100 / 100 100 / 100 100 ML @ 200 mls/hr IV.SIG Q6H KATIE Rx#:[id number] Anesthesia Amount 1300 / 1300 Output: Estimated Blood Loss 100 / 100 Other: # Voids 1 2 Date of Last Bowel Movement 01/21/19 01/21/18 Weight On Admission 56.3 kg Narrative: Left shoulder dressing C/D/I sling and swath in place numbness to 1st, 2nd, and 3rd digits (which she had prior to sx) good movement of digits 2+ radial pulses Results - Labs CBC & Chem 7: 01/23/19 04:20 Laboratory Results - last 24 hr 01/22/19 01/23/19 08:10 04:20 Hgb 10.8 L Hct 32.5 L Blood Type O Positive Blood Type Recheck Not needed Antibody Screen Negative - Imaging Impressions Shoulder X-Ray 01/22/19 00:00 CONCLUSION: Expected postoperative changes status post left shoulder arthroplasty. Assessment and Plan - Assessment and Plan POD #1 Left proximal humerus removal of internal fixation and conversion to reverse total shoulder arthroplasty Pain management - [place] Physical therapy - Pendulum exercise only Leave dressing in place x 1 week. If there is significant drainage, then remove dressing. Clean with alcohol and apply a new dressing daily. D/C - anticipating Home with [facility] Saturday F/U in [address] Alarcon or WILLARD in office.
[2019-01-23] MEDS: Folic Acid 1 MG Tablet PO SCH (09:02)
[2019-01-23] MEDS: Ascorbic Acid 500 MG Tablet PO SCH (09:02)
[2019-01-23] MEDS: Senna/Docusate Sodium 8.6/50 MG Tablet PO SCH ×2 (09:02→22:00)
[2019-01-23] MEDS: Multivitamin/Minerals Therapeutic Tablet PO SCH ×2 (09:02→22:00)
[2019-01-23] MEDS: Metoprolol Tartrate 25 MG Tablet PO SCH (09:03)
[2019-01-23] MEDS: Calcium/Vitamin D 250/125 MG Tablet PO SCH (09:03)
--- NOTE | 2019-01-23 12:43 | P.CONIM ---
History of Present Illness Reason for Consult: Post-op vision changes Primary Care Provider: No Primary Care Physician History of Present Illness: Ms. Perdue is an 88-year-old female patient with past medical history significant for hypertension, hyperlipidemia, coronary artery stenosis, severe aortic stenosis status post T AVR September 2017, diastolic congestive heart failure. Patient's son reports that she was on blood thinners (he believes Eliquis) up until two weeks ago. Anticoagulation was held for the surgery. Patient underwent a Left proximal humerus removal of internal fixation and conversion to reverse total shoulder arthroplasty with Dr. Alarcon. We have been consulted for post operative vision changes. Information gathered from patient and son who is at bedside. Patient began experiencing confusion and blurry vision earlier today. Patient currently reports vision in her right eye has improved. Patient reports she has no vision in her left eye. Patient denies fevers, chills, N/V/D/C, shortness of breath or chest pain. Patient A&0 at this time. PMH: hypertension, hyperlipidemia, coronary artery stenosis, severe aortic stenosis status post TAVR September 2017, diastolic congestive heart failure. PSxH: TAVR September 2017 Family medical history reviewed and noncontributory Social history: Patient denies EtOH use tobacco use or illicit drug use PMFSH Social History Social History Substance History: No History of Abuse Second Hand Smoke Exposure: No Smoking Status: Former smoker How Often Do You Have a Drink Containing Alcohol: Monthly or less Recent Travel in [facility] within the Last 8 Weeks: No Recent Out of Country Travel within the Last 8 Weeks: No Immunization History Tetanus Immunization: <5 Years Hx Influenza Vaccine This Season: Yes Medications and Allergies Allergies Allergy/AdvReac Type Severity Reaction Status Date / Time fish oil Allergy Severe Hives Verified 01/22/19 08:00 shellfish derived Allergy Severe Anaphylaxis Verified 01/22/19 08:00 Home Medications Medication Instructions Recorded Confirmed Type alum-mag hydroxide-simeth [Maalox 5 ml PO Q6H PRN 01/12/19 01/22/19 History Maximum Strength] amoxicillin 2,000 mg PO ONCE PRN 01/12/19 01/22/19 History ascorbic acid (vitamin C) [Vitamin 500 mg PO DAILY 01/12/19 01/22/19 History C] aspirin [Aspirin Low Dose] 81 mg PO DAILY 01/12/19 01/22/19 History atorvastatin 10 mg PO DAILY 01/12/19 01/22/19 History calcium carbonate-vitamin D3 1 tab PO DAILY 01/12/19 01/22/19 History [Calcium 500 + D] cetirizine [Zyrtec] 10 mg PO DAILY 01/12/19 01/22/19 History fluticasone 1 spray INTRANASAL DAILY 01/12/19 01/22/19 History folic acid 1 mg PO DAILY 01/12/19 01/22/19 History lansoprazole 30 mg PO DAILY 01/12/19 01/22/19 History metoprolol tartrate 12.5 mg PO BID 01/12/19 01/22/19 History multivitamin [One Daily] 1 tab PO DAILY 01/12/19 01/22/19 History vitamin A-vitamin C-vit E-min 1 tab PO DAILY 01/12/19 01/22/19 History [Ocutabs] Active Medications: Active Medications Hydrocodone Bitart/Acetaminophen (Tyrone 5/325) 1 tab PO Q4H PRN PRN Reason: PAIN LESS THAN 5 ON SCALE Al Hydrox/Mg Hydrox/Simethicone (Mag-Al Plus Susp Liq) 30 ml PO Q6H PRN PRN Reason: GASTRIC REFLUX Al Hydroxide/Mg Hydroxide (Milk Of Magnesia Liq) 30 ml PO BID PRN PRN Reason: Mild Constipation Ascorbic Acid (Vitamin C) 500 mg PO DAILY [facility] Last Admin: 01/23/19 09:02 Dose: 500 mg Aspirin (Ecotrin) 81 mg PO DAILY [facility] Last Admin: 01/23/19 09:02 Dose: 81 mg Atorvastatin Calcium (Lipitor) 10 mg PO DAILY [facility] Last Admin: 01/23/19 09:02 Dose: 10 mg Bisacodyl (Dulcolax Supp) 10 mg RECTAL DAILY PRN PRN Reason: SEVERE CONSITIPATION Calcium/Vitamin D (Oscal With D 250/125 Mg) 2 tab PO DAILY [facility] Last Admin: 01/23/19 09:03 Dose: 2 tab Cetirizine HCl (Zyrtec) 10 mg PO DAILY [facility] Last Admin: 01/23/19 09:02 Dose: 10 mg Chlorhexidine Gluconate (Hibiclens 4% Topical) 1 applicatio TOPICAL ONCE [facility] Stop: 01/26/19 07:29 Last Admin: 01/22/19 08:22 Dose: 1 applicatio Diphenhydramine HCl (Benadryl) 25 mg PO Q6H PRN PRN Reason: ITCHING Fluticasone Propionate (Flonase Nasal [place]) 1 spray EACH NARE DAILY [facility] Folic Acid (Folic Acid) 1 mg PO DAILY [facility] Last Admin: 01/23/19 09:02 Dose: 1 mg Hydromorphone HCl (Dilaudid Pf Inj) 1 mg IV.PUSH Q3H PRN PRN Reason: BREAKTHROUGH PAIN Last Admin: 01/23/19 05:54 Dose: 1 mg Cefazolin Sodium/Dextrose (Ancef 2 Gm Premix Inj) 2 gm in 50 mls @ 100 mls/hr IV.SIG HOT MILL OPERATOR [facility] Stop: 01/26/19 07:59 Last Infusion: 01/22/19 12:17 Dose: Infused Vancomycin HCl 1,000 mg/ (Sodium Chloride) 250 mls @ 250 mls/hr IV.SIG HOT MILL OPERATOR [facility] Stop: 01/25/19 07:29 Last Infusion: 01/22/19 12:09 Dose: Infused Lactulose (Lactulose Liq) 30 ml PO DAILY PRN PRN Reason: SEVERE CONSITIPATION Metoprolol Tartrate (Lopressor) 12.5 mg PO BID [facility] Last Admin: 01/23/19 09:03 Dose: 12.5 mg Miscellaneous Information (Mis Nursing Information) 0 each OTHER UNSCH PRN PRN Reason: SEE LABEL COMMENTS Stop: 01/23/19 13:10 Multivitamins/Minerals (Theragran-M) 1 tab PO BID [facility] Stop: 03/23/19 20:59 Last Admin: 01/23/19 09:02 Dose: 1 tab Ondansetron HCl (Zofran Inj) 4 mg IV.PUSH Q6H PRN PRN Reason: NAUSEA OR VOMITING Last Admin: 01/23/19 09:36 Dose: 4 mg Pantoprazole Sodium (Protonix) 40 mg PO DAILY [facility] Last Admin: 01/23/19 09:02 Dose: 40 mg Senna/Docusate Sodium (Alina-Colace) 1 tab PO BID [facility] Last Admin: 01/23/19 09:02 Dose: 1 tab Sennosides (Senokot) 17.2 mg PO BID PRN PRN Reason: Moderate Constipation Sodium Chloride (Ns Flush) 2 ml IV.FLUSH BID [facility] Last Admin: 01/23/19 09:16 Dose: 2 ml Sodium Chloride (Ns Flush) 2 ml IV.FLUSH PRN PRN PRN Reason: FLUSH AFTER USING IV ACCESS Physical Exam Vital signs: Last Vital Signs Temp 97.4 F L 01/23/19 08:00 Pulse 108 H 01/23/19 08:00 Resp 19 01/23/19 08:00 BP 129/59 L 01/23/19 08:00 Pulse Ox 94 L 01/23/19 08:00 Narrative: GENERAL: This is a well-nourished, well-developed patient CARDIOVASCULAR: Regular rate and rhythm RESPIRATORY: Clear to auscultation. Breath sounds equal bilaterally. GASTROINTESTINAL: Abdomen soft, non-tender, nondistended. Normal active bowel sounds MUSCULOSKELETAL: Post-operative dressing LUE dry and intact sling and swath in place NEURO: Alert & Oriented. poor vision left eye. Moves all ext x4 Results Labs CBC & Chem 7: 01/24/19 04:27 Assessment and Plan Plan Ms. Perdue is an 88-year-old female patient with past medical history significant for hypertension, hyperlipidemia, coronary artery stenosis, severe aortic stenosis status post TAVR September 2017, diastolic congestive heart failure. Patient underwent a Left proximal humerus removal of internal fixation and conversion to reverse total shoulder arthroplasty with Dr. Alarcon. We have been consulted for post operative vision changes. Patient's son reports that she was on blood thinners (he believes Eliquis) up until two weeks ago. Anticoagulation was held for the surgery. 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 Alarcon Post-operative management per Orthopedic surgery Vision changes CVA Stat CT head Head CT 01/23/19 1. Diffuse decreased attenuation is noted throughout the right occipital lobe and right medial temporal lobe suggestive of acute/subacute infarct. Clinical correlation is recommended. 2. No acute hemorrhage, midline shift or extra-axial fluid collection. 3. Scattered old lacunar infarcts are noted within the bilateral basal ganglia. 4. Mild cerebral atrophy is noted. 5. Mild periventricular white matter small vessel ischemic changes are noted bilaterally. HOB flat Allow permissive HTN consult neurology aspirin daily Continue home Atorvastatin Lipid panel in AM Echocardiogram carotid US DVT prophylaxis per orthopedic surgery Attending Attestation The exam, history, and the medical decision-making described in the above note were completed with the assistance of the mid-level provider. I reviewed and agree with the findings presented. I attest that I had a [id number] encounter with the patient on the same day, and personally performed and documented my assessment and findings in the medical record. Patient examined. Assessment and plan formulated with Sophia Ruiz PA-C. I agree with the above. - left visual field loss - CT brain (01/24/19) --> right occipital/right medial-temporal lobe infarct - permissive HTN - await Neurology - obtain echocardigoram - obtain fasting lipids
--- NOTE | 2019-01-23 13:26 | CT ---
EXAM DATE: 01/23/2019 1:20 PM EST AGE/SEX: 88 years / Female INDICATIONS: Post op shoulder surgery. Visual changes. CLINICAL DATA: This is the patient's initial encounter. Patient reports that signs and symptoms have been present for 1 day and indicates a pain score of 7/10. MEDICAL/SURGICAL HISTORY: Gastritis. Appendectomy. Tubal ligation. Aortic valve replacement. RADIATION DOSE: 34.42 CTDI (mGy) COMPARISON: No prior exams available for comparison. TECHNIQUE: CT of the head without contrast. Using automated exposure control and adjustment of the mA and/or kV according to patient size, radiation dose was kept as low as reasonably achievable to ob tain optimal diagnostic quality images. DICOM format image data is available electronically for revi ew and comparison. FINDINGS: Cerebrum: Diffuse decreased attenuation is noted throughout the right occipital lobe and right media l temporal lobe suggestive of acute/subacute infarct. Clinical correlation is recommended. No acute h emorrhage, midline shift or extra-axial fluid collection is noted. Scattered old lacunar infarcts are noted within the bilateral basal ganglia. Mild cerebral atrophy is noted. Mild periventricular white matter small vessel ischemic changes are noted bilaterally. Posterior Fossa: The cerebellum and brainstem are intact. The 4th ventricle is midline. The cerebe llopontine angle is unremarkable. Extracranial: The visualized portion of the orbits is intact. Minimal mucosal thickening is noted wi thin the bilateral maxillary and ethmoid sinuses. Skull: The calvaria is intact. No evidence of skull fracture. CONCLUSION: 1. Diffuse decreased attenuation is noted throughout the right occipital lobe and right medial tempo ral lobe suggestive of acute/subacute infarct. Clinical correlation is recommended. 2. No acute hemorrhage, midline shift or extra-axial fluid collection. 3. Scattered old lacunar infarcts are noted within the bilateral basal ganglia. 4. Mild cerebral atrophy is noted. 5. Mild periventricular white matter small vessel ischemic changes are noted bilaterally. . . Electronically signed by: Marques Walton MD Board Certified Radiologist 01/23/2019 1:24 PM EST
--- NOTE | 2019-01-23 13:59 | CT ---
EXAM DATE: 01/23/2019 1:53 PM EST AGE/SEX: 88 years / Female INDICATIONS: STROKE ALERT. Right sided gaze. Right sided weakness. CLINICAL DATA: This is the patient's initial encounter. Patient reports that signs and symptoms have been present for 1 day and indicates a pain score of 0/10. MEDICAL/SURGICAL HISTORY: Gastroesophageal reflux disease. Appendectomy. Aortic valve replacement. RADIATION DOSE: 24.56 CTDI (mGy) COMPARISON: No prior exams available for comparison. TECHNIQUE: Volumetric scanning was performed using a multi-row detector CT scanner during bolus infu levi of 75 ml Visipaque 320 (iodixanol) nonionic water-soluble contrast as a single exam dose. The data was post processed with a variety of visualization algorithms including full volume maximum int ensity projection, multi-planar sliding thin slab reformation, curved planar reformation, and surface rendering techniques. Using automated exposure control and adjustment of the mA and/or kV according to patient size, radiation dose was kept as low as reasonably achievable to obtain optimal diagnosti c quality images. DICOM format image data is available electronically for review and comparison. FINDINGS: There is embolic occlusion of the P2 segment of the right posterior cerebral artery. Both anterior ce rebral arteries and middle cerebral arteries are widely patent. Both carotids are patent. The basilar artery is patent. CONCLUSION: 1. 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 Report was called by Sebas to the stroke team while on scanner Electronically signed by: Ag Mullen MD Board Certified Radiologist 01/23/2019 1:58 PM EST
--- NOTE | 2019-01-23 14:52 | CT ---
EXAM DATE: 01/23/2019 2:19 PM EST AGE/SEX: 88 years / Female INDICATIONS: Stroke alert. Right sided weakness. Right gaze. CLINICAL DATA: This is the patient's initial encounter. Patient reports that signs and symptoms have been present for 1 day and indicates a pain score of 0/10. MEDICAL/SURGICAL HISTORY: Gastroesophageal reflux disease. Appendectomy. Left shoulder. Aortic valv e replacement. RADIATION DOSE: 24.56 CTDI (mGy) COMPARISON: No prior exams available for comparison. TECHNIQUE: Volumetric scanning was performed using a multirow detector CT scanner during bolus infus ion of 75 ml Visipaque 320 (iodixanol) nonionic water-soluble contrast as a cumulative dose for mult iple exams. The data was postprocessed with a variety of visualization algorithms including full-vo lume maximum intensity projection, multiplanar sliding thin-slab reformation, curved-planar reformati on, and surface-rendering techniques. Using automated exposure control and adjustment of the mA and/ or kV according to patient size, radiation dose was kept as low as reasonably achievable to obtain op timal diagnostic quality images. DICOM format image data is available electronically for review and comparison. Percent stenosis is calculated using the diameter of the stenotic region over the diameter of the nor mal distal internal carotid artery. FINDINGS: Aortic Arch: There is a three-vessel origin of the great vessels from the aorta. No evidence of ost ial narrowing Right Carotid: Minimal calcific plaque is seen in the origin of the right internal carotid without s ignificant stenosis. There is very minimal soft plaque evident. Left Carotid: Minimal calcific plaque is seen origin of the left internal carotid not felt to be hem odynamically significant. Vertebrals: The vertebral arteries have a symmetric diameter. No stenotic lesions are seen. CONCLUSION: 1. Minimal calcific plaque, negative for hemodynamically significant stenosis. Report was called by Dr. Mullen to stroke team on scanner Electronically signed by: Ag Mullen MD Board Certified Radiologist 01/23/2019 2:51 PM EST
[2019-01-23] MEDS: Sod Chloride 0.9% Inj 1,000 ML IV.CONT SCH (18:17)
--- NOTE | 2019-01-23 20:42 | MB ---
cc: Charlie Ramachandran MD DATE: 01/23/2019 HISTORY OF PRESENT ILLNESS: An 88-year-old right-handed woman with a history of aortic valve replacement, TAVR valve done in 09/2017. She takes a baby aspirin a day. She sees Dr. Dominguez and also [facility]. Otherwise, she has been very healthy. She had fallen in the past and had a fracture of her shoulder, had a clot in her arm at that time, and was on Eliquis briefly. It was 03/2017, I believe. She had recently been taking an aspirin a day and had an elective surgery on her left arm yesterday, and then today, it was noted she was little confused. CAT scan was done. A stroke alert was called, which showed what appears to be acute to subacute, looks like at least a day or 2 old, maybe more, maybe even up to 5 days old, right posterior cerebral artery infarct. She had not noticed any vision problems before she had come in the hospital, however. TPA was not given due to the presence of the recent stroke. SOCIAL HISTORY: Not a smoker or a drinker. Lives alone. FAMILY HISTORY: Positive for cancer. Negative for seizure or stroke. REVIEW OF SYSTEMS: Denied hypertension, diabetes, hypercholesterolemia, UT, CABG, atrial fibrillation, renal, hepatic, pulmonary disease, thyroid disease, lupus, ulcer, cancer, seizure, prior stroke. MEDICATIONS AT HOME: 1. She was on multivitamins. 2. Metoprolol. 3. Aspirin 81. 4. Zyrtec. 5. Atorvastatin. 6. Amoxicillin. 7. ____. 8. Hydrocodone. Here, she is on 81 of aspirin a day now. She is on vancomycin, resolution manager to OR. PHYSICAL EXAMINATION: VITAL SIGNS: She is in sinus rhythm here in the hospital. Afebrile, 93, 25, 147/56. CARDIOVASCULAR: There were no carotid bruits or vertebral bruits, but there is a radiated murmur from the heart, and there is a very 3/6 systolic ejection murmur throughout the precordium. NEUROLOGIC: The pupils are equal. She has a left homonymous hemianopsia. Extraocular movements are intact without nystagmus. Face is symmetric. Tongue was midline. Face sensation was intact. She has normal strength in right upper and bilateral lower extremities. In the left hand, she was given a sling for the recent shoulder surgery. Toes downgoing bilaterally. DTRs trace throughout. Pinprick was intact throughout. She has some neglect on double simultaneous stimuli of the bilateral lower sensory legs. Speech is fluent. She is not aphasic. She is oriented. She is alert. LABORATORY DATA: CBC is negative hemoglobin and hematocrit. Creatinine is normal. Sodium 136. Apparently, echocardiogram was done today. CTA of the neck negative for significant stenosis. Vertebral basilar system looked fine. CT of the head was read as a small embolic occlusion, P2 on the right, although I am unable to pull the films up on CT of the head. IMPRESSION: History of aortic valve replacement. Stroke with apparent normal arteries. We will check a troponin, some additional blood work, an echocardiogram, a Holter. Have cardiology see her for now. She is put on the aspirin, but it was a significant probably cardioembolic event and anticoagulation in the future could be considered. MD DAISY Rowe/sandoval/masha , 08:05 PM , 08:13 PM
[2019-01-23 21:08] LABS: Free T4 (Free Thyroxine) 1.34 ng/dL (0.76-1.46); Thyroid Stimulating Hormone 0.93 uIU/mL (0.358-3.740)
[2019-01-24] MEDS: Sod Chloride 0.9% Inj 1,000 ML IV.CONT SCH ×3 (04:32→23:51)
[2019-01-24 05:23] LABS: Hematocrit 27.1 % (35.0-46.0); Hemoglobin 9.6 gm/dL (11.6-15.3)
[2019-01-24 05:53] LABS: Chol/HDL Ratio 1.81 Ratio; HDL Cholesterol 61.3 mg/dL (40.0-60.0)
[2019-01-24 06:12] LABS: CKMB Percent 0.3 % (0.0-4.0); Creatine Kinase MB 1.8 ng/mL (0.5-3.6)
[2019-01-24] MEDS: Folic Acid 1 MG Tablet PO SCH (08:36)
[2019-01-24] MEDS: Senna/Docusate Sodium 8.6/50 MG Tablet PO SCH ×2 (08:36→21:08)
[2019-01-24] MEDS: Ascorbic Acid 500 MG Tablet PO SCH (08:36)
[2019-01-24] MEDS: Multivitamin/Minerals Therapeutic Tablet PO SCH ×2 (08:36→21:08)
[2019-01-24] MEDS: Calcium/Vitamin D 250/125 MG Tablet PO SCH (08:37)
--- NOTE | 2019-01-24 09:46 | P.PNIM ---
Subjective Interval history: Continued left visual field loss. No limb weakness. NO difficulty with speech, word recall, or swallowing. Physical Exam Vital signs: Last Vital Signs Temp 99.2 F 01/24/19 08:00 Pulse 88 01/24/19 08:00 Resp 17 01/24/19 08:00 BP 114/55 L 01/24/19 08:00 Pulse Ox 100 01/24/19 08:00 Narrative: GENERAL: This is a well-nourished, well-developed patient CARDIOVASCULAR: Regular rate and rhythm RESPIRATORY: Clear to auscultation. Breath sounds equal bilaterally. GASTROINTESTINAL: Abdomen soft, non-tender, nondistended. Normal active bowel sounds MUSCULOSKELETAL: Post-operative dressing LUE dry and intact sling and swath in place NEURO: Alert & Oriented. poor vision left eye. Moves all ext x4 Results Labs CBC & Chem 7: 01/26/19 04:57 Assessment and Plan Plan Ms. Perdue is an 88-year-old female patient with past medical history significant for hypertension, hyperlipidemia, coronary artery stenosis, severe aortic stenosis status post TAVR September 2017, diastolic congestive heart failure. Patient underwent a Left proximal humerus removal of internal fixation and conversion to reverse total shoulder arthroplasty with Dr. Alarcon. We have been consulted for post operative vision changes. Patient's son reports that she was on blood thinners (he believes Eliquis) up until two weeks ago. Anticoagulation was held for the surgery. 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 Alarcon Post-operative management per Orthopedic surgery Vision changes CVA Head CT 01/23/19 1. Diffuse decreased attenuation is noted throughout the right occipital lobe and right medial temporal lobe suggestive of acute/subacute infarct. Clinical correlation is recommended. 2. No acute hemorrhage, midline shift or extra-axial fluid collection. 3. Scattered old lacunar infarcts are noted within the bilateral basal ganglia. 4. Mild cerebral atrophy is noted. 5. Mild periventricular white matter small vessel ischemic changes are noted bilaterally. CTA Head (01/23/19) Small Embolic occlusion P2 segment on the right. CTA Neck (01/23/19) 1. Minimal calcific plaque, negative for hemodynamically significant stenosis - appreciate input from Neurology - continue permissive HTN - echocardiogram performed (01/23/19) --> awiting interpretation - ASA 81mg daily - lipitor 10mg hs - LDL (01/24/19) 32 - holter --> pending - anticipate discharge 01/26/19 - case d/w orthopedic service (01/24/19). Pt can be anticoagulated again form orthopedic perspective. 2) Left proximal humerus removal of internal fixation and conversion to reverse total shoulder arthroplasty - procedure performed by Dr. Alarcon 01/22/19 - juan manuel prn - PT - post op mgmt per Orthopedic service - pt previously planned for discharge to home following hospitalization Progress Note: Quality VTE Deep Vein Thrombosis/Pulmonary Embolism Present on Admission: No
--- NOTE | 2019-01-24 09:54 | P.PNOP ---
Subjective Interval history: POD #2 Left proximal humerus removal of internal fixation and conversion to reverse total shoulder arthroplasty, Pt is awake and alert and states her pain is well controlled. Pt states her vision has improved, she is able to close one eye at a time and 'see the clock' . Pt understands she is not ready for discharge today. <Trish King "Veronika" - Last Filed: 01/24/19 09:40> Physical Exam Vital signs: Vital Signs 01/23/19 11:40 01/23/19 14:05 01/23/19 14:43 Temperature Pulse Rate 87 95 H 91 H Respiratory Rate 16 17 28 H Blood Pressure 134/63 146/63 H 142/61 H Pulse Oximetry 95 01/23/19 14:51 01/23/19 15:00 01/23/19 15:01 Temperature Pulse Rate 91 H 94 H Respiratory Rate 12 18 Blood Pressure 122/58 L Pulse Oximetry 96 97 98 01/23/19 16:00 01/23/19 16:01 01/23/19 17:04 Temperature Pulse Rate 87 83 106 H Respiratory Rate 14 15 Blood Pressure 140/65 150/67 H Pulse Oximetry 99 99 01/23/19 17:12 01/23/19 19:00 01/23/19 20:00 Temperature 98.1 F Pulse Rate 93 H 86 80 Respiratory Rate 25 H 16 18 Blood Pressure 147/56 H 119/58 L 119/56 L Pulse Oximetry 92 L 96 97 01/23/19 21:00 01/23/19 22:00 01/23/19 23:00 Temperature Pulse Rate 81 78 82 Respiratory Rate 16 16 14 Blood Pressure 125/59 L 160/68 H 123/58 L Pulse Oximetry 100 100 96 01/24/19 00:00 01/24/19 01:00 01/24/19 02:00 Temperature Pulse Rate 87 82 85 Respiratory Rate 14 16 14 Blood Pressure 121/60 130/60 114/57 L Pulse Oximetry 100 99 99 01/24/19 03:00 01/24/19 04:00 01/24/19 05:00 Temperature Pulse Rate 81 83 82 Respiratory Rate 15 16 16 Blood Pressure 110/56 L 118/58 L 123/60 Pulse Oximetry 99 99 99 01/24/19 06:00 01/24/19 07:00 01/24/19 08:00 Temperature 99.2 F Pulse Rate 89 83 88 Respiratory Rate 14 16 17 Blood Pressure 136/64 137/62 114/55 L Pulse Oximetry 99 99 100 Intake & Output 01/23/19 01/24/19 01/24/19 18:59 06:59 18:59 Intake Total 445.63 / 445.63 1240 / 1240 Balance 445.63 / 445.63 1240 / 1240 Weight 61.3 kg Intake: IV 205.63 / 205.63 1000 / 1000 NS Inj 1,000 ML @ 70 mls/hr IV. 1000 / 1000 CONT .[id number] KATIE Rx#:[id number] Ancef Inj 1,000 MG In NS Inj 100 / 100 100 ML @ 200 mls/hr IV.SIG Q6H KATIE Rx#:[id number] Oral 240 / 240 240 / 240 Other: # Voids 3 1 Date of Last Bowel Movement 01/22/19 01/22/19 Narrative: Vision has returned, although slightly blurry A&O x4 Left shoulder dressing C/D/I sling and swath in place numbness to 1st, 2nd, and 3rd digits (which she had prior to sx) good movement of digits and wrist good sensation of deltoid but no active contraction 2+ radial pulses Dr Twin was present for examination <Trish King "Veronika" - Last Filed: 01/24/19 09:40> Vital signs: Vital Signs 01/23/19 11:40 01/23/19 14:05 01/23/19 14:43 Temperature Pulse Rate 87 95 H 91 H Respiratory Rate 16 17 28 H Blood Pressure 134/63 146/63 H 142/61 H Pulse Oximetry 95 01/23/19 14:51 01/23/19 15:00 01/23/19 15:01 Temperature Pulse Rate 91 H 94 H Respiratory Rate 12 18 Blood Pressure 122/58 L Pulse Oximetry 96 97 98 01/23/19 16:00 01/23/19 16:01 01/23/19 17:04 Temperature Pulse Rate 87 83 106 H Respiratory Rate 14 15 Blood Pressure 140/65 150/67 H Pulse Oximetry 99 99 01/23/19 17:12 01/23/19 19:00 01/23/19 20:00 Temperature 98.1 F Pulse Rate 93 H 86 80 Respiratory Rate 25 H 16 18 Blood Pressure 147/56 H 119/58 L 119/56 L Pulse Oximetry 92 L 96 97 01/23/19 21:00 01/23/19 22:00 01/23/19 23:00 Temperature Pulse Rate 81 78 82 Respiratory Rate 16 16 14 Blood Pressure 125/59 L 160/68 H 123/58 L Pulse Oximetry 100 100 96 01/24/19 00:00 01/24/19 01:00 01/24/19 02:00 Temperature Pulse Rate 87 82 85 Respiratory Rate 14 16 14 Blood Pressure 121/60 130/60 114/57 L Pulse Oximetry 100 99 99 01/24/19 03:00 01/24/19 04:00 01/24/19 05:00 Temperature Pulse Rate 81 83 82 Respiratory Rate 15 16 16 Blood Pressure 110/56 L 118/58 L 123/60 Pulse Oximetry 99 99 99 01/24/19 06:00 01/24/19 07:00 01/24/19 08:00 Temperature 99.2 F Pulse Rate 89 83 88 Respiratory Rate 14 16 17 Blood Pressure 136/64 137/62 114/55 L Pulse Oximetry 99 99 100 01/24/19 09:00 01/24/19 10:00 Temperature Pulse Rate 80 84 Respiratory Rate 15 19 Blood Pressure 126/58 L 102/52 L Pulse Oximetry 100 100 Intake & Output 01/23/19 01/24/19 01/24/19 18:59 06:59 18:59 Intake Total 445.63 / 445.63 1240 / 1240 Balance 445.63 / 445.63 1240 / 1240 Weight 61.3 kg Intake: IV 205.63 / 205.63 1000 / 1000 NS Inj 1,000 ML @ 70 mls/hr IV. 1000 / 1000 CONT .[id number] KATIE Rx#:[id number] Ancef Inj 1,000 MG In NS Inj 100 / 100 100 ML @ 200 mls/hr IV.SIG Q6H KATIE Rx#:[id number] Oral 240 / 240 240 / 240 Other: # Voids 3 1 Date of Last Bowel Movement 01/22/19 01/22/19 <Amauri Murcia - Last Filed: 01/24/19 10:15> Results - Labs CBC & Chem 7: 01/24/19 04:27 Laboratory Results - last 24 hr 01/23/19 01/23/19 01/23/19 13:35 13:35 21:12 Hgb POC Hgb (Calc) 10.9 L Hct POC Hct 32.0 L POC Sodium 136 L POC Potassium 4.4 POC Chloride 100 L POC BUN 15 POC Creatinine 0.7 POC Glucose 140 H Total Creatine Kinase CK-MB (CK-2) CK-MB (CK-2) % Troponin I 0.02 Triglycerides Cholesterol LDL Cholesterol, Calc HDL Cholesterol Cholesterol/HDL Ratio Vitamin B12 434 Cancelled TSH 0.930 Cancelled Free T4 1.34 Cancelled 01/24/19 01/24/19 04:27 04:27 Hgb 9.6 L POC Hgb (Calc) Hct 27.1 L POC Hct POC Sodium POC Potassium POC Chloride POC BUN POC Creatinine POC Glucose Total Creatine Kinase 596 H CK-MB (CK-2) 1.8 CK-MB (CK-2) % 0.3 Troponin I Triglycerides 59 Cholesterol 111 L LDL Cholesterol, Calc 38 HDL Cholesterol 61.3 H Cholesterol/HDL Ratio 1.81 Vitamin B12 TSH Free T4 - Imaging Impressions Head CTA 01/23/19 00:00 CONCLUSION: 1. 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 Report was called by Sebas to the stroke team while on scanner Neck CTA 01/23/19 00:00 CONCLUSION: 1. Minimal calcific plaque, negative for hemodynamically significant stenosis. Report was called by Dr. Mullen to stroke team on scanner Head CT 01/23/19 12:05 CONCLUSION: 1. Diffuse decreased attenuation is noted throughout the right occipital lobe and right medial temporal lobe suggestive of acute/subacute infarct. Clinical correlation is recommended. 2. No acute hemorrhage, midline shift or extra-axial fluid collection. 3. Scattered old lacunar infarcts are noted within the bilateral basal ganglia. 4. Mild cerebral atrophy is noted. 5. Mild periventricular white matter small vessel ischemic changes are noted bilaterally. . . <Trish King "Veronika" - Last Filed: 01/24/19 09:40> - Labs CBC & Chem 7: 01/24/19 04:27 Laboratory Results - last 24 hr 01/23/19 01/23/19 01/23/19 13:35 13:35 21:12 Hgb POC Hgb (Calc) 10.9 L Hct POC Hct 32.0 L POC Sodium 136 L POC Potassium 4.4 POC Chloride 100 L POC BUN 15 POC Creatinine 0.7 POC Glucose 140 H Total Creatine Kinase CK-MB (CK-2) CK-MB (CK-2) % Troponin I 0.02 Triglycerides Cholesterol LDL Cholesterol, Calc HDL Cholesterol Cholesterol/HDL Ratio Vitamin B12 434 Cancelled TSH 0.930 Cancelled Free T4 1.34 Cancelled 01/24/19 01/24/19 04:27 04:27 Hgb 9.6 L POC Hgb (Calc) Hct 27.1 L POC Hct POC Sodium POC Potassium POC Chloride POC BUN POC Creatinine POC Glucose Total Creatine Kinase 596 H CK-MB (CK-2) 1.8 CK-MB (CK-2) % 0.3 Troponin I Triglycerides 59 Cholesterol 111 L LDL Cholesterol, Calc 38 HDL Cholesterol 61.3 H Cholesterol/HDL Ratio 1.81 Vitamin B12 TSH Free T4 - Imaging Impressions Head CTA 01/23/19 00:00 CONCLUSION: 1. 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 Report was called by Sebas to the stroke team while on scanner Neck CTA 01/23/19 00:00 CONCLUSION: 1. Minimal calcific plaque, negative for hemodynamically significant stenosis. Report was called by Dr. Mullen to stroke team on scanner Head CT 01/23/19 12:05 CONCLUSION: 1. Diffuse decreased attenuation is noted throughout the right occipital lobe and right medial temporal lobe suggestive of acute/subacute infarct. Clinical correlation is recommended. 2. No acute hemorrhage, midline shift or extra-axial fluid collection. 3. Scattered old lacunar infarcts are noted within the bilateral basal ganglia. 4. Mild cerebral atrophy is noted. 5. Mild periventricular white matter small vessel ischemic changes are noted bilaterally. . . <Amauri Murcia - Last Filed: 01/24/19 10:15> Assessment and Plan - Ortho Post Op Day # 2 - Assessment and Plan POD #2 Left proximal humerus removal of internal fixation and conversion to reverse total shoulder arthroplasty, Ortho status stable It is noted patient has good sensation of deltoid but no active contraction Pain management - [place] [facility] therapy - Pendulum exercises TID, ok to remove sling/swathe for comfort No change dressing x 1 week. If there is significant drainage, then remove dressing (clean with alcohol and apply a new dressing daily) Change in disposition and post surgical vision loss Right posterior cerebral artery infarct -appreciate Neurology's input and involvement in case Appreciate medical management and involvement with patients case Awaiting cardiology consult per Neurology Discharge planning, F/U in [address] Alarcon or WILLARD in office. <Trish King" - Last Filed: 01/24/19 09:40> - Assessment and Plan OK to resume anticoagulation from an orthopedic standpoint. <Amauri Murcia - Last Filed: 01/24/19 10:15>
--- NOTE | 2019-01-24 10:01 | ECHRPT ---
Indication: CVA/TIA CONCLUSIONS Normal left ventricular size. Wall thickness is normal. The left ventricular systolic function is normal with an estimated ejection fraction in the range of 60-65%. There was limited left ventricular wall motion assessment due to poor endocardial visualization. Mitral annular calcification is present. The aortic prosthesis is not well visualized. There is trace tricuspid valve regurgitation. The estimated pulmonary arterial pressure is 42 mmHg. BP: / HR: Rhythm: Sinus MEASUREMENTS (Male / Female) Normal Values Technical Quality:Very technically difficult study 2D ECHO LV Diastolic Diameter PLAX 3.4 cm 4.2 - 5.9 / 3.9 - 5.3 cm LV Systolic Diameter PLAX 2.4 cm LA Systolic Diameter LX 3.8 cm 3.0 - 4.0 / 2.7 - 3.8 cm DOPPLER TR Peak Velocity 282.0 cm/s TR Peak Gradient 31.8 mmHg Right Atrial Pressure 10.0 mmHg Pulmonary Artery Systolic Pressu 41.8 mmHg Right Ventricular Systolic Press 41.8 mmHg PV Peak Velocity 181.0 cm/s PV Peak Gradient 13.1 mmHg FINDINGS LEFT VENTRICLE Normal left ventricular size. Wall thickness is normal. The left ventricular systolic function is normal with an estimated ejection fraction in the range of 60-65%. There was limited left ventricular wall motion assessment due to poor endocardial visualization. RIGHT VENTRICLE The right ventricle was not well visualized. LEFT ATRIUM The left atrium was not well visualized. RIGHT ATRIUM The right atrium is not well visualized. ATRIAL SEPTUM Normal atrial septal thickness without atrial level shunting by limited color doppler interrogation. AORTA The aortic root and proximal ascending aorta are not well visualized. MITRAL VALVE Mitral annular calcification is present. AORTIC VALVE The aortic prosthesis is not well visualized. TRICUSPID VALVE There is trace tricuspid valve regurgitation. The estimated pulmonary arterial pressure is 42 mmHg. PULMONARY VALVE The pulmonary valve is not well visualized. VESSELS The inferior vena cava is normal in size. PERICARDIUM No pericardial effusion. Luke Jean MD, FACC, FSCAI (Electronically Signed) Final Date:24 January 2019 10:00
[2019-01-24] MEDS ORDERED: Heparin - SQ 10,000 UNITS/ML Vial SQ SCH (10:30)
--- NOTE | 2019-01-24 11:05 | P.PNNEU ---
Subjective Active Medications: Active Medications Hydrocodone Bitart/Acetaminophen ([place] 5/325) 1 tab PO Q4H PRN PRN Reason: PAIN LESS THAN 5 ON SCALE Last Admin: 01/24/19 08:40 Dose: 1 tab Al Hydrox/Mg Hydrox/Simethicone (Mag-Al Plus Susp Liq) 30 ml PO Q6H PRN PRN Reason: GASTRIC REFLUX Al Hydroxide/Mg Hydroxide (Milk Of Magnesia Liq) 30 ml PO BID PRN PRN Reason: Mild Constipation Ascorbic Acid (Vitamin C) 500 mg PO DAILY [facility] Last Admin: 01/24/19 08:36 Dose: 500 mg Aspirin (Ecotrin) 81 mg PO DAILY [facility] Last Admin: 01/24/19 08:36 Dose: 81 mg Atorvastatin Calcium (Lipitor) 10 mg PO DAILY [facility] Last Admin: 01/24/19 08:36 Dose: 10 mg Bisacodyl (Dulcolax Supp) 10 mg RECTAL DAILY PRN PRN Reason: SEVERE CONSITIPATION Calcium/Vitamin D (Oscal With D 250/125 Mg) 2 tab PO DAILY [facility] Last Admin: 01/24/19 08:37 Dose: 2 tab Cetirizine HCl (Zyrtec) 10 mg PO DAILY [facility] Last Admin: 01/24/19 08:36 Dose: 10 mg Chlorhexidine Gluconate (Hibiclens 4% Topical) 1 applicatio TOPICAL ONCE [facility] Stop: 01/26/19 07:29 Last Admin: 01/22/19 08:22 Dose: 1 applicatio Diphenhydramine HCl (Benadryl) 25 mg PO Q6H PRN PRN Reason: ITCHING Fluticasone Propionate (Flonase Nasal [place]) 1 spray EACH NARE DAILY [facility] Last Admin: 01/24/19 09:21 Dose: 1 spray Folic Acid (Folic Acid) 1 mg PO DAILY [facility] Last Admin: 01/24/19 08:36 Dose: 1 mg Heparin Sodium (Porcine) (Heparin Inj) 5,000 units SQ Q12H [facility] Last Admin: 01/24/19 10:55 Dose: 5,000 units Hydromorphone HCl (Dilaudid Pf Inj) 1 mg IV.PUSH Q3H PRN PRN Reason: BREAKTHROUGH PAIN Last Admin: 01/23/19 05:54 Dose: 1 mg Cefazolin Sodium/Dextrose (Ancef 2 Gm Premix Inj) 2 gm in 50 mls @ 100 mls/hr IV.SIG REGIONAL HR MANAGER [facility] Stop: 01/26/19 07:59 Last Infusion: 01/22/19 12:17 Dose: Infused Vancomycin HCl 1,000 mg/ (Sodium Chloride) 250 mls @ 250 mls/hr IV.SIG REGIONAL HR MANAGER [facility] Stop: 01/25/19 07:29 Last Infusion: 01/22/19 12:09 Dose: Infused Sodium Chloride (Ns Inj) 1,000 mls @ 70 mls/hr IV.CONT .[id number] [facility] Last Admin: 01/24/19 08:58 Dose: Not Given Lactulose (Lactulose Liq) 30 ml PO DAILY PRN PRN Reason: SEVERE CONSITIPATION Multivitamins/Minerals (Theragran-M) 1 tab PO BID [facility] Stop: 03/23/19 20:59 Last Admin: 01/24/19 08:36 Dose: 1 tab Ondansetron HCl (Zofran Inj) 4 mg IV.PUSH Q6H PRN PRN Reason: NAUSEA OR VOMITING Last Admin: 01/23/19 09:36 Dose: 4 mg Pantoprazole Sodium (Protonix) 40 mg PO DAILY [facility] Last Admin: 01/24/19 08:36 Dose: 40 mg Senna/Docusate Sodium (Alina-Colace) 1 tab PO BID [facility] Last Admin: 01/24/19 08:36 Dose: 1 tab Sennosides (Senokot) 17.2 mg PO BID PRN PRN Reason: Moderate Constipation Sodium Chloride (Ns Flush) 2 ml IV.FLUSH BID [facility] Last Admin: 01/24/19 08:37 Dose: Not Given Sodium Chloride (Ns Flush) 2 ml IV.FLUSH PRN PRN PRN Reason: FLUSH AFTER USING IV ACCESS Warfarin Sodium (Coumadin) 5 mg PO DAILY@1600 [facility] Allergies/Adverse Reactions: Allergies Allergy/AdvReac Type Severity Reaction Status Date / Time fish oil Allergy Severe Hives Verified 01/22/19 08:00 shellfish derived Allergy Severe Anaphylaxis Verified 01/22/19 08:00 Physical Exam Vital signs: Vital Signs 01/23/19 11:40 01/23/19 14:05 01/23/19 14:43 Temperature Pulse Rate 87 95 H 91 H Respiratory Rate 16 17 28 H Blood Pressure 134/63 146/63 H 142/61 H Pulse Oximetry 95 01/23/19 14:51 01/23/19 15:00 01/23/19 15:01 Temperature Pulse Rate 91 H 94 H Respiratory Rate 12 18 Blood Pressure 122/58 L Pulse Oximetry 96 97 98 01/23/19 16:00 01/23/19 16:01 01/23/19 17:04 Temperature Pulse Rate 87 83 106 H Respiratory Rate 14 15 Blood Pressure 140/65 150/67 H Pulse Oximetry 99 99 01/23/19 17:12 01/23/19 19:00 01/23/19 20:00 Temperature 98.1 F Pulse Rate 93 H 86 80 Respiratory Rate 25 H 16 18 Blood Pressure 147/56 H 119/58 L 119/56 L Pulse Oximetry 92 L 96 97 01/23/19 21:00 01/23/19 22:00 01/23/19 23:00 Temperature Pulse Rate 81 78 82 Respiratory Rate 16 16 14 Blood Pressure 125/59 L 160/68 H 123/58 L Pulse Oximetry 100 100 96 01/24/19 00:00 01/24/19 01:00 01/24/19 02:00 Temperature Pulse Rate 87 82 85 Respiratory Rate 14 16 14 Blood Pressure 121/60 130/60 114/57 L Pulse Oximetry 100 99 99 01/24/19 03:00 01/24/19 04:00 01/24/19 05:00 Temperature Pulse Rate 81 83 82 Respiratory Rate 15 16 16 Blood Pressure 110/56 L 118/58 L 123/60 Pulse Oximetry 99 99 99 01/24/19 06:00 01/24/19 07:00 01/24/19 08:00 Temperature 99.2 F Pulse Rate 89 83 88 Respiratory Rate 14 16 17 Blood Pressure 136/64 137/62 114/55 L Pulse Oximetry 99 99 100 01/24/19 09:00 01/24/19 10:00 Temperature Pulse Rate 80 84 Respiratory Rate 15 19 Blood Pressure 126/58 L 102/52 L Pulse Oximetry 100 100 Intake & Output 01/23/19 01/24/19 01/24/19 18:59 06:59 18:59 Intake Total 445.63 / 445.63 1240 / 1240 Balance 445.63 / 445.63 1240 / 1240 Weight 61.3 kg Intake: IV 205.63 / 205.63 1000 / 1000 NS Inj 1,000 ML @ 70 mls/hr IV. 1000 / 1000 CONT .[id number] [facility] Rx#:[id number] Ancef Inj 1,000 MG In NS Inj 100 / 100 100 ML @ 200 mls/hr IV.SIG Q6H [facility] Rx#:[id number] Oral 240 / 240 240 / 240 Other: # Voids 3 1 Date of Last Bowel Movement 01/22/19 01/22/19 Narrative: l hh some left neglect sensory truong awake alert nl speech moves left well Objective Laboratory Results - last 24 hr 01/23/19 01/23/19 01/23/19 13:35 13:35 21:12 Hgb POC Hgb (Calc) 10.9 L Hct POC Hct 32.0 L POC Sodium 136 L POC Potassium 4.4 POC Chloride 100 L POC BUN 15 POC Creatinine 0.7 POC Glucose 140 H Total Creatine Kinase CK-MB (CK-2) CK-MB (CK-2) % Troponin I 0.02 Triglycerides Cholesterol LDL Cholesterol, Calc HDL Cholesterol Cholesterol/HDL Ratio Vitamin B12 434 Cancelled TSH 0.930 Cancelled Free T4 1.34 Cancelled 01/24/19 01/24/19 04:27 04:27 Hgb 9.6 L POC Hgb (Calc) Hct 27.1 L POC Hct POC Sodium POC Potassium POC Chloride POC BUN POC Creatinine POC Glucose Total Creatine Kinase 596 H CK-MB (CK-2) 1.8 CK-MB (CK-2) % 0.3 Troponin I Triglycerides 59 Cholesterol 111 L LDL Cholesterol, Calc 38 HDL Cholesterol 61.3 H Cholesterol/HDL Ratio 1.81 Vitamin B12 TSH Free T4 Review/Management - Review/Management Plan: imp echo neg bu aortic valve not seen well ?CELSO awit cards consult labs ok ldl and trop neg i dw med team sq hep and coumadin then change to eliquis in two months due to size of cva mri if able
[2019-01-24] MEDS ORDERED: Warfarin Consult Pharmacy OTHER PRN (11:43)
--- NOTE | 2019-01-24 11:58 | P.CONCA ---
History of Present Illness Service: cardiology Consult date: 01/24/19 Requesting Physician: Charlie Ramachandran Reason for Consult: cva Primary Care Provider: Slick Wilcox Chief Complaint: cv History of Present Illness: 88-year-old lady hypertension, hyperlipidemia, coronary artery disease, severe aortic stenosis status post TAVR September 2017, diastolic congestive heart failure, and small right posterior tibial nonocclusive thrombus by u/s treated briefly with Eliquis in 10/2018 who presented for elective Left proximal humerus removal of internal fixation and conversion to reverse total shoulder arthroplasty with Dr. Alarcon. She developed post operative vision changes. Head CTA confirms right sided PDA likely embolic stroke per radiology read. Information gathered from patient and son who is at bedside. Patient denies fevers, chills, N/V/D/C, shortness of breath or chest pain. ECG and telemetry reviewed revealing NSR only. Patient has NO history of atrial fibrillation, as was suggested in one prior note in the [facility] chart. Multiple echocardiograms completed on this patient in past, none show PFO/ASD. Dr Ramachandran of neurology was consulted and started patient on coumadin for possible PAF with at this time cryptogenic stroke. Review of Systems All other systems reviewed negative except as stated in HPI [facility] - History History Provided By: Patient, Medical Record - Medical History Medical History: Medical History (Last Reviewed 01/24/19 @ 07:27 by Leni Costa) Arthritis GERD (gastroesophageal reflux disease) High cholesterol Joint pain Wears glasses - Surgical History Surgical History: Surgical History (Last Reviewed 01/24/19 @ 07:27 by Leni Costa) History of aortic valve replacement History of appendectomy History of cataract extraction with lens replacement History of tubal ligation - Tobacco History Second Hand Smoke Exposure: No Tobacco Use In Past 30 Days: No Smoking Status: Former smoker - Alcohol History How Often Do You Have a Drink Containing Alcohol: Monthly or less - Substance Use History Substance History: No History of Abuse - Travel History Recent Travel in the [place] Within the Last 8 Weeks: No Recent Travel Out of the Country Within the Last 8 Weeks: No - Immunization History Tetanus Immunization: <5 Years Hx Influenza Vaccine This Season: Yes Medications and Allergies Active Medications: Active Medications Hydrocodone Bitart/Acetaminophen ([place] 5/325) 1 tab PO Q4H PRN PRN Reason: PAIN LESS THAN 5 ON SCALE Last Admin: 03/02/19 08:40 Dose: 1 tab Al Hydrox/Mg Hydrox/Simethicone (Mag-Al Plus Susp Liq) 30 ml PO Q6H PRN PRN Reason: GASTRIC REFLUX Al Hydroxide/Mg Hydroxide (Milk Of Magnesia Liq) 30 ml PO BID PRN PRN Reason: Mild Constipation Ascorbic Acid (Vitamin C) 500 mg PO DAILY [facility] Last Admin: 01/24/19 08:36 Dose: 500 mg Aspirin (Ecotrin) 81 mg PO DAILY [facility] Last Admin: 01/24/19 08:36 Dose: 81 mg Atorvastatin Calcium (Lipitor) 10 mg PO DAILY [facility] Last Admin: 01/24/19 08:36 Dose: 10 mg Bisacodyl (Dulcolax Supp) 10 mg RECTAL DAILY PRN PRN Reason: SEVERE CONSITIPATION Calcium/Vitamin D (Oscal With D 250/125 Mg) 2 tab PO DAILY [facility] Last Admin: 01/24/19 08:37 Dose: 2 tab Cetirizine HCl (Zyrtec) 10 mg PO DAILY [facility] Last Admin: 01/24/19 08:36 Dose: 10 mg Chlorhexidine Gluconate (Hibiclens 4% Topical) 1 applicatio TOPICAL ONCE [facility] Stop: 01/26/19 07:29 Last Admin: 01/22/19 08:22 Dose: 1 applicatio Diphenhydramine HCl (Benadryl) 25 mg PO Q6H PRN PRN Reason: ITCHING Fluticasone Propionate (Flonase Nasal [place]) 1 spray EACH NARE DAILY [facility] Last Admin: 01/24/19 09:21 Dose: 1 spray Folic Acid (Folic Acid) 1 mg PO DAILY [facility] Last Admin: 01/24/19 08:36 Dose: 1 mg Hydromorphone HCl (Dilaudid Pf Inj) 1 mg IV.PUSH Q3H PRN PRN Reason: BREAKTHROUGH PAIN Last Admin: 01/23/19 05:54 Dose: 1 mg Cefazolin Sodium/Dextrose (Ancef 2 Gm Premix Inj) 2 gm in 50 mls @ 100 mls/hr IV.SIG PUBLICATIONS WRITER [facility] Stop: 01/26/19 07:59 Last Infusion: 01/22/19 12:17 Dose: Infused Vancomycin HCl 1,000 mg/ (Sodium Chloride) 250 mls @ 250 mls/hr IV.SIG PUBLICATIONS WRITER [facility] Stop: 01/25/19 07:29 Last Infusion: 01/22/19 12:09 Dose: Infused Sodium Chloride (Ns Inj) 1,000 mls @ 70 mls/hr IV.CONT .[id number] [facility] Last Admin: 01/24/19 08:58 Dose: Not Given Lactulose (Lactulose Liq) 30 ml PO DAILY PRN PRN Reason: SEVERE CONSITIPATION Multivitamins/Minerals (Theragran-M) 1 tab PO BID [facility] Stop: 03/23/19 20:59 Last Admin: 01/24/19 08:36 Dose: 1 tab Ondansetron HCl (Zofran Inj) 4 mg IV.PUSH Q6H PRN PRN Reason: NAUSEA OR VOMITING Last Admin: 01/23/19 09:36 Dose: 4 mg Pantoprazole Sodium (Protonix) 40 mg PO DAILY [facility] Last Admin: 01/24/19 08:36 Dose: 40 mg Pharmacy Profile Note (Coumadin Consult Pharmacy) 1 each OTHER UNSCH PRN PRN Reason: PHARMACY DOCUMENTATION Senna/Docusate Sodium (Alina-Colace) 1 tab PO BID [facility] Last Admin: 01/24/19 08:36 Dose: 1 tab Sennosides (Senokot) 17.2 mg PO BID PRN PRN Reason: Moderate Constipation Sodium Chloride (Ns Flush) 2 ml IV.FLUSH BID [facility] Last Admin: 01/24/19 08:37 Dose: Not Given Sodium Chloride (Ns Flush) 2 ml IV.FLUSH PRN PRN PRN Reason: FLUSH AFTER USING IV ACCESS Allergies Allergy/AdvReac Type Severity Reaction Status Date / Time fish oil Allergy Severe Hives Verified 01/22/19 08:00 shellfish derived Allergy Severe Anaphylaxis Verified 01/22/19 08:00 Home Medications Medication Instructions Recorded Confirmed Type alum-mag hydroxide-simeth [Maalox 5 ml PO Q6H PRN 01/12/19 01/22/19 History Maximum Strength] amoxicillin 2,000 mg PO ONCE PRN 01/12/19 01/22/19 History ascorbic acid (vitamin C) [Vitamin 500 mg PO DAILY 01/12/19 01/22/19 History C] aspirin [Aspirin Low Dose] 81 mg PO DAILY 01/12/19 01/22/19 History atorvastatin 10 mg PO DAILY 01/12/19 01/22/19 History calcium carbonate-vitamin D3 1 tab PO DAILY 01/12/19 01/22/19 History [Calcium 500 + D] cetirizine [Zyrtec] 10 mg PO DAILY 01/12/19 01/22/19 History fluticasone 1 spray INTRANASAL DAILY 01/12/19 01/22/19 History folic acid 1 mg PO DAILY 01/12/19 01/22/19 History lansoprazole 30 mg PO DAILY 01/12/19 01/22/19 History metoprolol tartrate 12.5 mg PO BID 01/12/19 01/22/19 History multivitamin [One Daily] 1 tab PO DAILY 01/12/19 01/22/19 History vitamin A-vitamin C-vit E-min 1 tab PO DAILY 01/12/19 01/22/19 History [Ocutabs] Exam Vital signs: Vital Signs 01/23/19 14:05 01/23/19 14:43 01/23/19 14:51 Temperature Pulse Rate 95 H 91 H Respiratory Rate 17 28 H Blood Pressure 146/63 H 142/61 H Pulse Oximetry 95 96 01/23/19 15:00 01/23/19 15:01 01/23/19 16:00 Temperature Pulse Rate 91 H 94 H 87 Respiratory Rate 12 18 14 Blood Pressure 122/58 L Pulse Oximetry 97 98 99 01/23/19 16:01 01/23/19 17:04 01/23/19 17:12 Temperature Pulse Rate 83 106 H 93 H Respiratory Rate 15 25 H Blood Pressure 140/65 150/67 H 147/56 H Pulse Oximetry 99 92 L 01/23/19 19:00 01/23/19 20:00 01/23/19 21:00 Temperature 98.1 F Pulse Rate 86 80 81 Respiratory Rate 16 18 16 Blood Pressure 119/58 L 119/56 L 125/59 L Pulse Oximetry 96 97 100 01/23/19 22:00 01/23/19 23:00 01/24/19 00:00 Temperature Pulse Rate 78 82 87 Respiratory Rate 16 14 14 Blood Pressure 160/68 H 123/58 L 121/60 Pulse Oximetry 100 96 100 01/24/19 01:00 01/24/19 02:00 01/24/19 03:00 Temperature Pulse Rate 82 85 81 Respiratory Rate 16 14 15 Blood Pressure 130/60 114/57 L 110/56 L Pulse Oximetry 99 99 99 01/24/19 04:00 01/24/19 05:00 01/24/19 06:00 Temperature Pulse Rate 83 82 89 Respiratory Rate 16 16 14 Blood Pressure 118/58 L 123/60 136/64 Pulse Oximetry 99 99 99 01/24/19 07:00 01/24/19 08:00 01/24/19 09:00 Temperature 99.2 F Pulse Rate 83 88 80 Respiratory Rate 16 17 15 Blood Pressure 137/62 114/55 L 126/58 L Pulse Oximetry 99 100 100 01/24/19 10:00 Temperature Pulse Rate 84 Respiratory Rate 19 Blood Pressure 102/52 L Pulse Oximetry 100 Intake & Output 01/23/19 01/24/19 01/24/19 18:59 06:59 18:59 Intake Total 445.63 / 445.63 1240 / 1240 Balance 445.63 / 445.63 1240 / 1240 Weight 61.3 kg Intake: IV 205.63 / 205.63 1000 / 1000 NS Inj 1,000 ML @ 70 mls/hr IV. 1000 / 1000 CONT .[id number] [facility] Rx#:[id number] Ancef Inj 1,000 MG In NS Inj 100 / 100 100 ML @ 200 mls/hr IV.SIG Q6H [facility] Rx#:[id number] Oral 240 / 240 240 / 240 Other: # Voids 3 1 Date of Last Bowel Movement 01/22/19 01/22/19 Narrative: GENERAL: AOx 3, NAD speaking full sentences CARDIOVASCULAR: Regular rate and rhythm, no significant murmur. RESPIRATORY: Clear to auscultation. Breath sounds equal bilaterally. GASTROINTESTINAL: Abdomen soft, non-tender, nondistended. Normal active bowel sounds MUSCULOSKELETAL: Post-operative dressing LUE dry and intact sling and swath in place NEURO: Alert & Oriented. poor vision left eye. Moves all ext x4 Results 01/24/19 04:27 Cardiac Enzymes 01/23/19 01/24/19 Range/Units 21:12 04:27 CK-MB (CK-2) 1.8 (0.5-3.6) ng/mL Troponin I 0.02 (0.02-0.05) ng/mL Lipids 01/24/19 Range/Units 04:27 Triglycerides 59 (42-150) mg/dL Cholesterol 111 L (120-200) mg/dL HDL Cholesterol 61.3 H (40.0-60.0) mg/dL Cholesterol/HDL Ratio 1.81 Ratio CBC 01/23/19 01/24/19 Range/Units 04:20 04:27 Hgb 10.8 L 9.6 L (11.6-15.3) gm/dL Hct 32.5 L 27.1 L (35.0-46.0) % Intake and Output 01/23/19 01/24/19 01/24/19 22:59 06:59 14:59 Intake Total 445.63 / 445.63 1240 / 1240 Balance 445.63 / 445.63 1240 / 1240 Intake: IV 205.63 / 205.63 1000 / 1000 NS Inj 1,000 ML @ 70 mls/hr IV. 1000 / 1000 CONT .[id number] [facility] Rx#:[id number] Ancef Inj 1,000 MG In NS Inj 100 / 100 100 ML @ 200 mls/hr IV.SIG Q6H [facility] Rx#:[id number] Oral 240 / 240 240 / 240 Other: # Voids 3 1 Date of Last Bowel Movement 01/22/19 01/22/19 01/22/19 Weight 61.3 kg - Imaging and Cardiology Imaging: Impressions Shoulder X-Ray 01/22/19 00:00 CONCLUSION: Expected postoperative changes status post left shoulder arthroplasty. Head CTA 01/23/19 00:00 CONCLUSION: 1. 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 Report was called by Sebas to the stroke team while on scanner Neck CTA 01/23/19 00:00 CONCLUSION: 1. Minimal calcific plaque, negative for hemodynamically significant stenosis. Report was called by Dr. Mullen to stroke team on scanner Head CT 01/23/19 12:05 CONCLUSION: 1. Diffuse decreased attenuation is noted throughout the right occipital lobe and right medial temporal lobe suggestive of acute/subacute infarct. Clinical correlation is recommended. 2. No acute hemorrhage, midline shift or extra-axial fluid collection. 3. Scattered old lacunar infarcts are noted within the bilateral basal ganglia. 4. Mild cerebral atrophy is noted. 5. Mild periventricular white matter small vessel ischemic changes are noted bilaterally. . . Assessment and Plan - Plan Assessment: Post-operative stroke with right-PDA distribution ischemic stroke, suspected embolic per radiology read. 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 No history of PAF. No significant AI/ with bioprosthetic Aortic valve to suggest microthrombus on the valve and patient confirms never withholding aspirin therapy also makes this possible origin highly unlikely. Patient was started on chronic anticoagulation therapy by Dr. Ramachandran with Coumadin. I engaged with the patient and her family for a lengthy conversation of the risks, benefits and alternatives of anticoagulation therapy for prevention of future stroke if cause was due to cardioembolic phenomenon with possible underlying paroxysmal atrial fibrillation. We discussed holding on anticoagulation therapy and instead using antiplatelet therapy in conjunction with continuous rhythm monitoring for PAF, however, the patient and her family felt that she tolerated anticoagulation therapy just fine earlier this year during treatment of RLE distal nonocclusive thrombus and thus would prefer initiation of chronic anticoagulation therapy at this time. This is not unreasonable. We discussed the use of Coumadin versus NOAC therapy with Eliquis, and the patient wishes to use Eliquis due to ease of use. Following discussion with Dr. Ramachandran, he would prefer to treat with Coumadin for the next 2 months and then may transition to Eliquis at that time. Will defer rhythm monitoring given she is being treated with anticoagulation therapy unless she were to have bleeding or fall risk where she would need reevaluation of the risk/benefits of chronic anticoagulation therapy. At that time prolonged rhythm monitoring for possible underlying PAF would be appropriate. Thank you for the consultation. We will sign off.
[2019-01-24 12:00] LABS: Prothrombin Time 10.4 sec (9.8-11.6)
[2019-01-24] MEDS ORDERED: Gadobutrol PF 7.5 MMOL/7.5 ML Vial (for RAD) IV.SIG ONE (12:53)
--- NOTE | 2019-01-24 13:04 | MR ---
EXAM DATE: 01/24/2019 12:57 PM EST AGE/SEX: 88 years / Female INDICATIONS: Stroke. CLINICAL DATA: This is the patient's initial encounter. Patient reports that signs and symptoms have been present for 1 day and indicates a pain score of 4/10. MEDICAL/SURGICAL HISTORY: None. . Aortic valva replacement.Shoulder replacement. [place] [facility] [place]23/2019. . TECHNIQUE: Multiplanar, multisequence examination of the brain was performed without and with 6cc ml Gadavist (gadobutrol) contrast as a single exam dose. FINDINGS: Cerebrum: There is a large area of increased T2 signal and decreased T1 signal with loss of dueñas-whi te matter differentiation involving the medial aspect of the right temporal lobe with extension into the right occipital lobe with similar findings identified within the right thalamus. These areas all demonstrate restricted diffusion. There is moderate mass effect upon the posterior right lateral horn . White Matter: Scattered areas of increased T2 signal identified within the white matter periventricu larly as well as in addition to the areas previously noted associated with restricted diffusion. Posterior Fossa: There is a focal area of restricted diffusion and increased T1 signal identified wit hin the right cerebellum. No effacement of the fourth ventricle. Diffusion Imaging: Large areas of restricted diffusion as noted above consistent with acute and evol ving infarct. Extracranial: The visualized portions of the orbits and paranasal sinuses are unremarkable. Post Contrast: No abnormal areas of parenchymal or dural enhancement. No evidence of blood-brain ba rrier breakdown. CONCLUSION: 1. Multiple areas of acute infarction involving a large area of the medial right temporal lobe with extension into the right occipital lobe. Additional areas of infarction are present within the right thalamus and right cerebellum. There is mild mass effect upon the posterior horn of the right lateral ventricle. Follow-up imaging of this area is recommended to evaluate for possible evolving mass effe ct. Electronically signed by: Rebecca Rose MD Board Certified Radiologist 01/24/2019 1:03 PM EST
[2019-01-24] MEDS ORDERED: Midazolam Inj 5 MG/ML 1 ML Vial ONE (13:47)
[2019-01-24] MEDS: Heparin - SQ 10,000 UNITS/ML Vial SQ SCH (21:07)
[2019-01-25] MEDS: Ascorbic Acid 500 MG Tablet PO SCH (08:27)
[2019-01-25] MEDS: Senna/Docusate Sodium 8.6/50 MG Tablet PO SCH ×2 (08:27→21:00)
[2019-01-25] MEDS: Calcium/Vitamin D 250/125 MG Tablet PO SCH (08:27)
[2019-01-25] MEDS: Folic Acid 1 MG Tablet PO SCH (08:27)
[2019-01-25] MEDS: Multivitamin/Minerals Therapeutic Tablet PO SCH ×2 (08:27→21:00)
[2019-01-25] MEDS: Heparin - SQ 10,000 UNITS/ML Vial SQ SCH ×2 (08:28→21:00)
--- NOTE | 2019-01-25 09:19 | P.PNOP ---
Subjective Interval history: POD #3 Left proximal humerus removal of internal fixation and conversion to reverse total shoulder arthroplasty, Pt is very pleasant, awake and alert and sitting upright in chair. Shes states she worked with PT today, did pendulums and walked the halls. Pt states that her vision has improved, she is able to tell me how many fingers I'm holding up. Physical Exam Vital signs: Vital Signs 01/24/19 10:00 01/24/19 11:00 01/24/19 12:00 Temperature Pulse Rate 84 86 76 Respiratory Rate 19 18 15 Blood Pressure 102/52 L 93/48 L 106/53 L Pulse Oximetry 100 99 100 01/24/19 13:10 01/24/19 14:00 01/24/19 15:00 Temperature Pulse Rate 82 89 82 Respiratory Rate 14 17 18 Blood Pressure 106/53 L 112/55 L 150/70 H Pulse Oximetry 84 L 98 01/24/19 16:00 01/24/19 17:00 01/24/19 18:00 Temperature Pulse Rate 82 82 86 Respiratory Rate 18 15 17 Blood Pressure 146/63 H 160/69 H 149/66 H Pulse Oximetry 94 L 92 L 90 L 01/24/19 19:00 01/24/19 20:00 01/24/19 21:00 Temperature 98.8 F 98.8 F Pulse Rate 90 96 H 89 Respiratory Rate 17 22 19 Blood Pressure 150/68 H 117/57 L 117/57 L Pulse Oximetry 92 L 92 L 92 L 01/24/19 22:00 01/24/19 23:00 01/25/19 00:00 Temperature 98.7 F Pulse Rate 89 87 88 Respiratory Rate 17 17 18 Blood Pressure 148/68 H 137/61 155/69 H Pulse Oximetry 98 97 98 01/25/19 01:00 01/25/19 02:00 01/25/19 03:00 Temperature Pulse Rate 87 86 84 Respiratory Rate 16 18 15 Blood Pressure 153/69 H 142/66 H 161/67 H Pulse Oximetry 99 92 L 94 L 01/25/19 04:00 01/25/19 05:00 01/25/19 06:00 Temperature Pulse Rate 83 83 82 Respiratory Rate 17 15 14 Blood Pressure 168/70 H 128/58 L 153/66 H Pulse Oximetry 95 89 L 93 L 01/25/19 07:00 01/25/19 08:00 Temperature 99.7 F H Pulse Rate 78 87 Respiratory Rate 15 16 Blood Pressure 145/67 H 144/66 H Pulse Oximetry 92 L 93 L Intake & Output 01/24/19 01/25/19 01/25/19 18:59 06:59 18:59 Intake Total 1959 Balance 1959 Weight 61.4 kg Intake: IV 1000 / 1000 NS Inj 1,000 ML @ 70 mls/hr IV. 1000 / 1000 CONT .[id number] [facility] Rx#:[id number] Oral 960 / 960 Other: # Voids 4 2 Date of Last Bowel Movement 01/22/19 01/22/19 01/22/19 # Bowel Movements 0 Narrative: Vision has improved A&O x4 Left shoulder dressing C/D/I sling and swath in place numbness to 1st, 2nd, and 3rd digits (which she had prior to sx) good movement of digits and wrist good sensation of deltoid but no active contraction 2+ radial pulses Results - Labs CBC & Chem 7: 01/24/19 04:27 Laboratory Results - last 24 hr 01/24/19 01/25/19 11:08 04:47 PT 10.4 10.0 INR 1.0 1.0 - Imaging Impressions Head MRI 01/24/19 00:00 CONCLUSION: 1. Multiple areas of acute infarction involving a large area of the medial right temporal lobe with extension into the right occipital lobe. Additional areas of infarction are present within the right thalamus and right cerebellum. There is mild mass effect upon the posterior horn of the right lateral ventricle. Follow-up imaging of this area is recommended to evaluate for possible evolving mass effect. Assessment and Plan - Assessment and Plan POD #3 Left proximal humerus removal of internal fixation and conversion to reverse total shoulder arthroplasty, Ortho status stable It is noted patient has good sensation of deltoid but no active contraction Pain management - [place] Physical therapy - Pendulum exercises TID, ok to remove sling/swathe for comfort No change dressing x 1 week. If there is significant drainage, then remove dressing (clean with alcohol and apply a new dressing daily) Change in disposition and post surgical vision loss (which does seem to have improved) Right posterior cerebral artery infarct -appreciate Neurology, Cardiology and Medical's involvement in case Ok to resume anti-coagulation from an orthopedic standpoint. Cardiology/Neurology recommending Coumadin x2 months and then transition to Eliquis. Discharge planning
--- NOTE | 2019-01-25 10:12 | P.PNNEU ---
Subjective Active Medications: Active Medications Hydrocodone Bitart/Acetaminophen ([place] 5/325) 1 tab PO Q4H PRN PRN Reason: PAIN LESS THAN 5 ON SCALE Last Admin: 01/25/19 04:23 Dose: 1 tab Al Hydrox/Mg Hydrox/Simethicone (Mag-Al Plus Susp Liq) 30 ml PO Q6H PRN PRN Reason: GASTRIC REFLUX Al Hydroxide/Mg Hydroxide (Milk Of Magnesia Liq) 30 ml PO BID PRN PRN Reason: Mild Constipation Ascorbic Acid (Vitamin C) 500 mg PO DAILY [facility] Last Admin: 01/25/19 08:27 Dose: 500 mg Aspirin (Ecotrin) 81 mg PO DAILY [facility] Last Admin: 01/25/19 08:28 Dose: 81 mg Atorvastatin Calcium (Lipitor) 10 mg PO DAILY [facility] Last Admin: 01/25/19 08:27 Dose: 10 mg Bisacodyl (Dulcolax Supp) 10 mg RECTAL DAILY PRN PRN Reason: SEVERE CONSITIPATION Calcium/Vitamin D (Oscal With D 250/125 Mg) 2 tab PO DAILY [facility] Last Admin: 01/25/19 08:27 Dose: 2 tab Cetirizine HCl (Zyrtec) 10 mg PO DAILY [facility] Last Admin: 01/25/19 08:27 Dose: 10 mg Chlorhexidine Gluconate (Hibiclens 4% Topical) 1 applicatio TOPICAL ONCE [facility] Stop: 01/26/19 07:29 Last Admin: 01/22/19 08:22 Dose: 1 applicatio Diphenhydramine HCl (Benadryl) 25 mg PO Q6H PRN PRN Reason: ITCHING Fluticasone Propionate (Flonase Nasal [place]) 1 spray EACH NARE DAILY [facility] Last Admin: 01/25/19 08:29 Dose: 1 spray Folic Acid (Folic Acid) 1 mg PO DAILY [facility] Last Admin: 01/25/19 08:27 Dose: 1 mg Heparin Sodium (Porcine) (Heparin Inj) 5,000 units SQ Q12HR [facility] Last Admin: 01/25/19 08:28 Dose: 5,000 units Hydromorphone HCl (Dilaudid Pf Inj) 1 mg IV.PUSH Q3H PRN PRN Reason: BREAKTHROUGH PAIN Last Admin: 01/23/19 05:54 Dose: 1 mg Cefazolin Sodium/Dextrose (Ancef 2 Gm Premix Inj) 2 gm in 50 mls @ 100 mls/hr IV.SIG RATINGS ANALYST [facility] Stop: 01/26/19 07:59 Last Infusion: 01/22/19 12:17 Dose: Infused Sodium Chloride (Ns Inj) 1,000 mls @ 70 mls/hr IV.CONT .[id number] [facility] Last Admin: 01/24/19 23:51 Dose: 70 mls/hr Lactulose (Lactulose Liq) 30 ml PO DAILY PRN PRN Reason: SEVERE CONSITIPATION Multivitamins/Minerals (Theragran-M) 1 tab PO BID [facility] Stop: 03/23/19 20:59 Last Admin: 01/25/19 08:27 Dose: 1 tab Ondansetron HCl (Zofran Inj) 4 mg IV.PUSH Q6H PRN PRN Reason: NAUSEA OR VOMITING Last Admin: 01/25/19 08:56 Dose: 4 mg Pantoprazole Sodium (Protonix) 40 mg PO DAILY [facility] Last Admin: 01/25/19 08:27 Dose: 40 mg Pharmacy Profile Note (Coumadin Consult Pharmacy) 1 each OTHER UNSCH PRN PRN Reason: PHARMACY DOCUMENTATION Senna/Docusate Sodium (Alina-Colace) 1 tab PO BID [facility] Last Admin: 01/25/19 08:27 Dose: 1 tab Sennosides (Senokot) 17.2 mg PO BID PRN PRN Reason: Moderate Constipation Sodium Chloride (Ns Flush) 2 ml IV.FLUSH BID [facility] Last Admin: 01/25/19 08:28 Dose: Not Given Sodium Chloride (Ns Flush) 2 ml IV.FLUSH PRN PRN PRN Reason: FLUSH AFTER USING IV ACCESS Warfarin Sodium (Coumadin) 3 mg PO DAILY@1600 [facility] Allergies/Adverse Reactions: Allergies Allergy/AdvReac Type Severity Reaction Status Date / Time fish oil Allergy Severe Hives Verified 01/22/19 08:00 shellfish derived Allergy Severe Anaphylaxis Verified 01/22/19 08:00 Physical Exam Vital signs: Vital Signs 01/24/19 11:00 01/24/19 12:00 01/24/19 13:10 Temperature Pulse Rate 86 76 82 Respiratory Rate 18 15 14 Blood Pressure 93/48 L 106/53 L 106/53 L Pulse Oximetry 99 100 01/24/19 14:00 01/24/19 15:00 01/24/19 16:00 Temperature Pulse Rate 89 82 82 Respiratory Rate 17 18 18 Blood Pressure 112/55 L 150/70 H 146/63 H Pulse Oximetry 84 L 98 94 L 01/24/19 17:00 01/24/19 18:00 01/24/19 19:00 Temperature Pulse Rate 82 86 90 Respiratory Rate 15 17 17 Blood Pressure 160/69 H 149/66 H 150/68 H Pulse Oximetry 92 L 90 L 92 L 01/24/19 20:00 01/24/19 21:00 01/24/19 22:00 Temperature 98.8 F 98.8 F Pulse Rate 96 H 89 89 Respiratory Rate 22 19 17 Blood Pressure 117/57 L 117/57 L 148/68 H Pulse Oximetry 92 L 92 L 98 01/24/19 23:00 01/25/19 00:00 01/25/19 01:00 Temperature 98.7 F Pulse Rate 87 88 87 Respiratory Rate 17 18 16 Blood Pressure 137/61 155/69 H 153/69 H Pulse Oximetry 97 98 99 01/25/19 02:00 01/25/19 03:00 01/25/19 04:00 Temperature Pulse Rate 86 84 83 Respiratory Rate 18 15 17 Blood Pressure 142/66 H 161/67 H 168/70 H Pulse Oximetry 92 L 94 L 95 01/25/19 05:00 01/25/19 06:00 01/25/19 07:00 Temperature Pulse Rate 83 82 78 Respiratory Rate 15 14 15 Blood Pressure 128/58 L 153/66 H 145/67 H Pulse Oximetry 89 L 93 L 92 L 01/25/19 08:00 Temperature 99.7 F H Pulse Rate 87 Respiratory Rate 16 Blood Pressure 144/66 H Pulse Oximetry 93 L Intake & Output 01/24/19 01/25/19 01/25/19 18:59 06:59 18:59 Intake Total 1959 Balance 1959 Weight 61.4 kg Intake: IV 1000 / 1000 NS Inj 1,000 ML @ 70 mls/hr IV. 1000 / 1000 CONT .[id number] [facility] Rx#:[id number] Oral 960 / 960 Other: # Voids 4 2 Date of Last Bowel Movement 01/22/19 01/22/19 01/22/19 # Bowel Movements 0 Narrative: sr lhh moves left well some left neglect Objective Laboratory Results - last 24 hr 01/24/19 01/25/19 11:08 04:47 PT 10.4 10.0 INR 1.0 1.0 Review/Management - Review/Management Plan: imp echo neg bu aortic valve not seen well ?CELSO awit cards consult labs ok ldl and trop neg i dw med team sq hep and coumadin then change to eliquis in two months due to size of cva mri if able 01/25/19 stable neuro sr there is a small acute cva r cbllm and r day spa manager and t thalamic some heme changes in the r day spa manager cva petechial changes will continue coumadin inr 1.0 can go to rehab and they could manage coumadin dosing? there do not overshoot inr however with heme changes holter pend i dw cards yest anticoag indefinitley and they were ok with eliquis in a few months for lifetime
--- NOTE | 2019-01-25 10:51 | CT ---
EXAM DATE: 01/25/2019 10:39 AM EST AGE/SEX: 88 years / Female INDICATIONS: Intracerebral Hemorrhage CLINICAL DATA: This is the patient's subsequent encounter. Patient reports that signs and symptoms h ave been present for 2 days and indicates a pain score of 0/10. MEDICAL/SURGICAL HISTORY: Gastroesophageal reflux disease. Arthritis. Appendectomy. Tubal ligatio n. Aortic Valve Replaced RADIATION DOSE: 43.55 CTDI (mGy) [place] [facility] [place] [facility] [place]/O [place]/24/[place]. . TECHNIQUE: CT of the head without contrast. Using automated exposure control and adjustment of the mA and/or kV according to patient size, radiation dose was kept as low as reasonably achievable to ob tain optimal diagnostic quality images. DICOM format image data is available electronically for revi ew and comparison. FINDINGS: Cerebrum: There is a large area of infarction involving the medial right temporal lobe without evide nce of hemorrhagic transformation.. Hypoattenuation identified within the right thalamus at the site of additional infarct. There is mild mass effect with partial effacement of the posterior horn of the right lateral ventricle. The remainder the ventricles are patent. Posterior Fossa: Small focal hypoattenuation identified within the right cerebellum at the site of i nfarct. No evidence of hemorrhagic transformation. Fourth ventricle is patent. The 4th ventricle is m idline. The cerebellopontine angle is unremarkable. Extracranial: The visualized portion of the orbits is intact. Skull: The calvaria is intact. No evidence of skull fracture. CONCLUSION: 1. Large area of infarction involving the medial right temporal lobe and occipital lobe as well as t he right thalamus and right cerebellum. No evidence of hemorrhagic transformation. . . Electronically signed by: Rebecca Rose MD Board Certified Radiologist 01/25/2019 10:50 AM EST
[2019-01-25] MEDS: Sod Chloride 0.9% Inj 1,000 ML IV.CONT SCH (13:49)
--- NOTE | 2019-01-25 16:29 | P.DS ---
DS: Providers Date of admission: 01/22/19 06:49 01/26/19 Primary care physician: No Primary Care Physician Consults: 01/23/19 12:07 Consult to Hospitalist Routine Consulting Provider: Slick Jeter Reason for Consultation: CONSULT MEDICAL ROUTINE FOR STAT HEAD CT POST OP VISION CHANGES Notified:: Service Spoke with:: Debbie Date Notified:: 01/23/19 Time Notified:: 12:17 Comments:: Ordering Provider: JUANIS 01/23/19 13:35 Consult to Neurology Routine Consulting Provider: Charlie Becerra Reason for Consultation: post-op CVA Notified:: Office Spoke with:: [place] Date Notified:: 01/23/19 Time Notified:: 13:41 Ordering Provider: THELMA 01/23/19 20:04 Consult to Cardiology Routine Consulting Provider: Ed Leiva Does the patient have a Casino Banker who follows them?: Yes Preferred First Aid Attendant:: Anatoliy Dominguez Reason for Consultation: tavr and cva Notified:: Service Spoke with:: MANJIT Date Notified:: 01/23/19 Time Notified:: 20:25 Ordering Provider: ERLINDA DS: Summary Ms. Perdue is an 88-year-old female patient with past medical history significant for hypertension, hyperlipidemia, coronary artery stenosis, severe aortic stenosis status post TAVR September 2017, diastolic congestive heart failure. Patient underwent a Left proximal humerus removal of internal fixation and conversion to reverse total shoulder arthroplasty with Dr. Alarcon. We have been consulted for post operative vision changes. Patient's son reports that she was on blood thinners (he believes Eliquis) up until two weeks ago. Anticoagulation was held for the surgery. 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 Alarcon Post-operative management per Orthopedic surgery Vision changes CVA Head CT 01/23/19 1. Diffuse decreased attenuation is noted throughout the right occipital lobe and right medial temporal lobe suggestive of acute/subacute infarct. Clinical correlation is recommended. 2. No acute hemorrhage, midline shift or extra-axial fluid collection. 3. Scattered old lacunar infarcts are noted within the bilateral basal ganglia. 4. Mild cerebral atrophy is noted. 5. Mild periventricular white matter small vessel ischemic changes are noted bilaterally. CTA Head (01/23/19) Small Embolic occlusion P2 segment on the right. CTA Neck (01/23/19) 1. Minimal calcific plaque, negative for hemodynamically significant stenosis - appreciate input from Neurology - continue permissive HTN - echocardiogram performed (01/23/19) --> awaiting interpretation - ASA 81mg daily - lipitor 10mg hs - LDL (01/24/19) 32 - holter --> pending - anticipate discharge 01/26/19 - case d/w orthopedic service (01/24/19). Pt can be anticoagulated again form orthopedic perspective. - repeat CT head Head CT 01/25/19 1. Large area of infarction involving the medial right temporal lobe and occipital lobe as well as the right thalamus and right cerebellum. No evidence of hemorrhagic transformation. - consult neurology, neurology recommending Coumadin for 2 months then consider switching to Eliquis for lifelong anticoagulation - patient cleared for DC per neurology Attending Attestation: The exam, history, and the medical decision-making described in the above note were completed with the assistance of the mid-level provider. I reviewed and agree with the findings presented. I attest that I had a [id number] encounter with the patient on the same day, and personally performed and documented my assessment and findings in the medical record. Patient examined. Assessment and plan formulated with Sophia Ruiz PA-C. I agree with the above. Time Spent with Patient Total time spent providing and/or coordinating discharge services: Quality: VTE Deep Vein Thrombosis/Pulmonary Embolism Present on Admission: No Exam Narrative Exam Narrative: GENERAL: This is a well-nourished, well-developed patient CARDIOVASCULAR: Regular rate and rhythm RESPIRATORY: Clear to auscultation. Breath sounds equal bilaterally. GASTROINTESTINAL: Abdomen soft, non-tender, nondistended. Normal active bowel sounds MUSCULOSKELETAL: Post-operative dressing LUE dry and intact sling and swath in place NEURO: Alert & Oriented. poor vision left eye. Moves all ext x4. LUE exam limited due to post-op sling and swath Results Labs on day of discharge: Labs from last 24 hours 01/25/19 04:47 PT 10.0 INR 1.0 Impressions ITS Impressions Shoulder X-Ray 01/22/19 00:00 CONCLUSION: Expected postoperative changes status post left shoulder arthroplasty. Head CTA 01/23/19 00:00 CONCLUSION: 1. 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 Report was called by Sebas to the stroke team while on scanner Neck CTA 01/23/19 00:00 CONCLUSION: 1. Minimal calcific plaque, negative for hemodynamically significant stenosis. Report was called by Dr. Mullen to stroke team on scanner Head MRI 01/24/19 00:00 CONCLUSION: 1. Multiple areas of acute infarction involving a large area of the medial right temporal lobe with extension into the right occipital lobe. Additional areas of infarction are present within the right thalamus and right cerebellum. There is mild mass effect upon the posterior horn of the right lateral ventricle. Follow-up imaging of this area is recommended to evaluate for possible evolving mass effect. Head CT 01/25/19 10:12 CONCLUSION: 1. Large area of infarction involving the medial right temporal lobe and occipital lobe as well as the right thalamus and right cerebellum. No evidence of hemorrhagic transformation. . . Discharge Plan Discharge Disposition Patient Disposition: Discharge to SNF Discharge Condition Condition: Stable Discharge Order Discharge Orders: Discharge Order (Routine); Ordered 01/23/19 Ordered By: Shane Cochran Clear for Discharge (Routine); Ordered 01/26/19 Ordered By: Slick Jeter Discharge Details Anticipated Discharge Date: 01/25/19 Physicians Team Primary Care Provider: Primary Care Christina,Caridad Attending Provider: Jarett Alarcon Other Providers: Slick Jeter ; Charlie Becerra ; Ed Leiva ; [facility] Nurs & Raul,Agency Rxs /Orders / Referrals /Forms Prescriptions: New hydrocodone-acetaminophen 5-325 mg Tablet 1 tab PO Q4H PRN (Reason: Pain Less Than 5 On Scale) 7 Days Qty: 42 RF: 0 warfarin [Coumadin] 5 mg tablet 5 mg PO DAILY Qty: 30 RF: 0 enoxaparin [Lovenox] 30 mg/0.3 mL syringe 30 mg SQ DAILY Qty: 0.3 RF: 0 Continue multivitamin [One Daily] Tablet 1 tab PO DAILY RF: 0 cetirizine [Zyrtec] 10 mg Tablet 10 mg PO DAILY RF: 0 atorvastatin 10 mg Tablet 10 mg PO DAILY RF: 0 aspirin [Aspirin Low Dose] 81 mg Tablet,Delayed Release (Dr/Ec) 81 mg PO DAILY RF: 0 lansoprazole 30 mg Capsule,Delayed Release(Dr/Ec) 30 mg PO DAILY RF: 0 folic acid 1 mg Tablet 1 mg PO DAILY RF: 0 fluticasone 50 mcg/actuation [place],Suspension 1 spray INTRANASAL DAILY RF: 0 alum-mag hydroxide-simeth [Maalox Maximum Strength] 400-400-40 mg/5 mL Suspension 5 ml PO Q6H PRN (Reason: Gastric Reflux) RF: 0 ascorbic acid (vitamin C) [Vitamin C] 500 mg Tablet Extended Release 500 mg PO DAILY RF: 0 vitamin A-vitamin C-vit E-min [Ocutabs] Tablet 1 tab PO DAILY RF: 0 metoprolol tartrate 25 mg Tablet 12.5 mg PO BID RF: 0 calcium carbonate-vitamin D3 [Calcium 500 + D] 500 mg(1,250mg) -200 unit Tablet 1 tab PO DAILY RF: 0 amoxicillin 500 mg Tablet 2,000 mg PO ONCE PRN (Reason: Mouth Pain) Qty: 0 RF: 0 Referrals: Charlie Becerra MD [Physician] - See Instructions (follow up in 1-2 weeks) Shane Martin ARNP [[facility] RN PRACTITIONER] - See Instructions ( Your appointment has been scheduled for [01/27/19] at [1105 am] If you cannot make this appointment, please call the office to reschedule ) Primary Care Caridad Vasquez [Primary Care Provider] - See Instructions (Follow up with PCP Dr. Lopez in 1 week) Ed Leiva DO [Physician] - See Instructions (follow up in 1-2 weeks, will also need outpatient Holter monitor) Discharge Instructions Patient Printed Instructions: Shoulder Arthroplasty (DC) Additional Instructions: Physical therapy - Pendulum exercises TID, ok to remove sling/swathe for comfort No change dressing x 1 week. If there is significant drainage, then remove dressing (clean with alcohol and apply a new dressing daily) Discharge Information Discharge Date/Time: 01/26/19 19:25
[2019-01-25 17:36] VITALS: O2SAT 95
--- NOTE | 2019-01-25 23:17 | HM ---
Date Performed: 01/23/2019 Time Performed: 21:07:00 HOOKUP DATE: 01/23/19 09:07:00 PM Fri ANALYSIS START TIME: 01/23/2019 9:12:00 PM ANALYSIS END TIME: 01/24/2019 12:30:54 PM PATIENT AGE: 88 PATIENT HEIGHT: 66 PATIENT WEIGHT: 124 DRUG LIST: ROOM 1328 PATIENT DIAGNOSIS: NEURO TEST NARRATIVE: The patient's average heart rate was 84 BPM. Heart rates greater than 120 B PM were noted < 1% of the time. No episodes of bradycardia were noted. No pauses exceeding 2.0 s econds were noted. 130 ventricular ectopics, which represented < 1% of the total beat count, were noted. The highest ventricular ectopic frequency occurred from 08:00 AM to 09:00 AM Sat. During th is time 13 VE(s) occurred. Ventricular ectopics were observed as 130 isolated beat(s) only. No coup lets or runs were noted. 564 supraventricular ectopics, which represented 1% of the total beat co unt, were noted. The highest supraventricular ectopic frequency occurred from 10:00 PM to 11:00 PM F ri. During this time 149 SVE(s) occurred. No episodes of ST depression (defined as -1.0 mm or mo re) were noted in channel 1. No episodes of ST depression (defined as -1.0 mm or more) were noted in channel 2. No episodes of ST depression (defined as -1.0 mm or more) were noted in channel 3. NO DI LIVIER WAS GIVEN TO PATIENT TEST INTERPRETATION: 1) Underlying Sinus rhythm 2) Rare PAC/PVC 3) A few episodes of PAT (3-6 beats) 4) No Afib noted 5) No pauses Signed by : Karthkieyan Rebollar
[2019-01-26 05:06] VITALS: TEMP 98
[2019-01-26 05:19] LABS: INR 1.2 Ratio
[2019-01-26 05:23] LABS: Baso % (Auto) 0.4 % (0.0-2.0); Eos # (Auto) 0.3 th/mm3 (0.0-0.4); Eos % (Auto) 4.7 % (0.0-4.0); Hematocrit 26.6 % (35.0-46.0); Hemoglobin 9.2 gm/dL (11.6-15.3); Lymph # (Auto) 1.3 th/mm3 (1.0-4.8); Lymph % (Auto) 19.4 % (9.0-44.0); Mean Corpuscular HGB Conc 34.7 % (32.0-36.0); Mean Corpuscular Hemoglobin 32.7 pg (27.0-34.0); Mean Corpuscular Volume 94.2 fL (80.0-100.0); Mean Platelet Volume 7.7 fL (7.0-11.0); Mono # (Auto) 0.6 th/mm3 (0.0-0.9); Mono % (Auto) 9.2 % (0.0-8.0); Neut # (Auto) 4.4 th/mm3 (1.8-7.7); Neut % (Auto) 66.3 % (16.0-70.0); Platelet Count 172 th/mm3 (150-450); Red Blood Count 2.83 mil/mm3 (4.00-5.30); Red Cell Distribution Width 13.2 % (11.6-17.2); White Blood Count 6.7 th/mm3 (4.0-11.0)
--- NOTE | 2019-01-26 07:50 | P.PNNEU ---
Subjective Active Medications: Active Medications Hydrocodone Bitart/Acetaminophen ([place] 5/325) 1 tab PO Q4H PRN PRN Reason: PAIN LESS THAN 5 ON SCALE Last Admin: 01/25/19 04:23 Dose: 1 tab Al Hydrox/Mg Hydrox/Simethicone (Mag-Al Plus Susp Liq) 30 ml PO Q6H PRN PRN Reason: GASTRIC REFLUX Al Hydroxide/Mg Hydroxide (Milk Of Magnesia Liq) 30 ml PO BID PRN PRN Reason: Mild Constipation Last Admin: 01/25/19 23:49 Dose: 30 ml Ascorbic Acid (Vitamin C) 500 mg PO DAILY [facility] Last Admin: 01/25/19 08:27 Dose: 500 mg Aspirin (Ecotrin) 81 mg PO DAILY [facility] Last Admin: 01/25/19 08:28 Dose: 81 mg Atorvastatin Calcium (Lipitor) 10 mg PO DAILY [facility] Last Admin: 01/25/19 08:27 Dose: 10 mg Bisacodyl (Dulcolax Supp) 10 mg RECTAL DAILY PRN PRN Reason: SEVERE CONSITIPATION Calcium/Vitamin D (Oscal With D 250/125 Mg) 2 tab PO DAILY [facility] Last Admin: 01/25/19 08:27 Dose: 2 tab Cetirizine HCl (Zyrtec) 10 mg PO DAILY [facility] Last Admin: 01/25/19 08:27 Dose: 10 mg Diphenhydramine HCl (Benadryl) 25 mg PO Q6H PRN PRN Reason: ITCHING Fluticasone Propionate (Flonase Nasal [place]) 1 spray EACH NARE DAILY [facility] Last Admin: 01/25/19 08:29 Dose: 1 spray Folic Acid (Folic Acid) 1 mg PO DAILY [facility] Last Admin: 01/25/19 08:27 Dose: 1 mg Heparin Sodium (Porcine) (Heparin Inj) 5,000 units SQ Q12HR [facility] Last Admin: 01/25/19 21:00 Dose: 5,000 units Hydromorphone HCl (Dilaudid Pf Inj) 1 mg IV.PUSH Q3H PRN PRN Reason: BREAKTHROUGH PAIN Last Admin: 01/23/19 05:54 Dose: 1 mg Cefazolin Sodium/Dextrose (Ancef 2 Gm Premix Inj) 2 gm in 50 mls @ 100 mls/hr IV.SIG [employer] [facility] Stop: 01/26/19 07:59 Last Infusion: 01/22/19 12:17 Dose: Infused Sodium Chloride (Ns Inj) 1,000 mls @ 70 mls/hr IV.CONT .[id number] [facility] Last Admin: 01/25/19 13:49 Dose: Not Given Lactulose (Lactulose Liq) 30 ml PO DAILY PRN PRN Reason: SEVERE CONSITIPATION Multivitamins/Minerals (Theragran-M) 1 tab PO BID [facility] Stop: 03/23/19 20:59 Last Admin: 01/25/19 21:00 Dose: 1 tab Ondansetron HCl (Zofran Inj) 4 mg IV.PUSH Q6H PRN PRN Reason: NAUSEA OR VOMITING Last Admin: 01/25/19 08:56 Dose: 4 mg Pantoprazole Sodium (Protonix) 40 mg PO DAILY [facility] Last Admin: 01/25/19 08:27 Dose: 40 mg Senna/Docusate Sodium (Alina-Colace) 1 tab PO BID [facility] Last Admin: 01/25/19 21:00 Dose: 1 tab Sennosides (Senokot) 17.2 mg PO BID PRN PRN Reason: Moderate Constipation Last Admin: 01/26/19 05:53 Dose: 17.2 mg Sodium Chloride (Ns Flush) 2 ml IV.FLUSH BID [facility] Last Admin: 01/25/19 21:00 Dose: 2 ml Sodium Chloride (Ns Flush) 2 ml IV.FLUSH PRN PRN PRN Reason: FLUSH AFTER USING IV ACCESS Warfarin Sodium (Coumadin) 5 mg PO DAILY@1600 KATIE Allergies/Adverse Reactions: Allergies Allergy/AdvReac Type Severity Reaction Status Date / Time fish oil Allergy Severe Hives Verified 01/22/19 08:00 shellfish derived Allergy Severe Anaphylaxis Verified 01/22/19 08:00 Physical Exam Vital signs: Vital Signs 01/25/19 08:00 01/25/19 09:00 01/25/19 10:00 Temperature 99.7 F H Pulse Rate 87 94 H 103 H Respiratory Rate 16 17 16 Blood Pressure 144/66 H 138/60 140/64 Pulse Oximetry 93 L 98 93 L 01/25/19 11:00 01/25/19 12:00 01/25/19 13:00 Temperature 99.4 F Pulse Rate 86 83 82 Respiratory Rate 17 16 17 Blood Pressure 145/67 H 164/71 H 173/73 H Pulse Oximetry 94 L 92 L 92 L 01/25/19 14:00 01/25/19 15:00 01/25/19 16:00 Temperature 99.4 F Pulse Rate 106 H 96 H 103 H Respiratory Rate 15 19 16 Blood Pressure 159/65 H 132/59 L Pulse Oximetry 01/25/19 17:00 01/25/19 17:33 01/25/19 18:00 Temperature Pulse Rate 82 89 Respiratory Rate 17 20 Blood Pressure 154/67 H 163/69 H Pulse Oximetry 95 01/25/19 19:00 01/25/19 20:00 01/25/19 21:00 Temperature 99.7 F H Pulse Rate 101 H 96 H 91 H Respiratory Rate 23 24 18 Blood Pressure 148/103 H 139/63 147/67 H Pulse Oximetry 01/25/19 22:00 01/25/19 23:00 01/26/19 00:00 Temperature 99.5 F Pulse Rate 93 H 85 92 H Respiratory Rate 21 20 21 Blood Pressure 153/68 H 152/67 H 158/72 H Pulse Oximetry 01/26/19 01:00 01/26/19 02:00 01/26/19 03:00 Temperature Pulse Rate 82 90 81 Respiratory Rate 18 17 19 Blood Pressure 144/70 H 183/82 H 147/66 H Pulse Oximetry 01/26/19 04:00 Temperature 98.0 F Pulse Rate 81 Respiratory Rate 13 Blood Pressure 177/72 H Pulse Oximetry Intake & Output 01/25/19 01/26/19 01/26/19 18:59 06:59 18:59 Intake Total 480 / 480 Output Total 575 / 575 Balance 480 / 480 -575 / -575 Weight 62.2 kg Intake: Oral 480 / 480 Output: Urine Amount (Catheter) 575 / 575 Indwelling Temp Sensing 575 / 575 Catheter Other: # Voids 4 Date of Last Bowel Movement 01/22/19 01/22/19 # Bowel Movements 0 Narrative: awake left hh moves left well - Urinary Catheter Management Indwelling Temp Sensing Catheter Cath placed during this visit: no Objective Laboratory Results - last 24 hr 01/26/19 01/26/19 04:57 04:57 WBC 6.7 RBC 2.83 L Hgb 9.2 L Hct 26.6 L MCV 94.2 MCH 32.7 MCHC 34.7 RDW 13.2 Plt Count 172 MPV 7.7 Neut % (Auto) 66.3 Lymph % (Auto) 19.4 [place] % (Auto) 9.2 H Eos % (Auto) 4.7 H Baso % (Auto) 0.4 Neut # (Auto) 4.4 Lymph # (Auto) 1.3 [place] # (Auto) 0.6 Eos # (Auto) 0.3 Baso # (Auto) 0.0 WBC Differential . Differential Comment Auto diff final PT 12.0 H INR 1.2 Review/Management - Review/Management Plan: imp echo neg bu aortic valve not seen well ?CELSO awit cards consult labs ok ldl and trop neg i dw med team sq hep and coumadin then change to eliquis in two months due to size of cva mri if able 01/25/19 stable neuro sr there is a small acute cva r cbllm and r alpine guide and t thalamic some heme changes in the r alpine guide cva petechial changes will continue coumadin inr 1.0 can go to rehab and they could manage coumadin dosing? there do not overshoot inr however with heme changes holter pend i dw cards yest anticoag indefinitley and they were ok with eliquis in a few months for lifetime 01/26/19 looks stable inr still low ok to rehab do not overshoot inr with petechial changes on mri ct no gross blood r cbllr r thalamic and t occipital cva
--- NOTE | 2019-01-26 07:54 | P.PNOP ---
Subjective Interval history: Patient comfortable Scheduled for d/c to [facility] today Physical Exam Vital signs: Vital Signs 01/25/19 08:00 01/25/19 09:00 01/25/19 10:00 Temperature 99.7 F H Pulse Rate 87 94 H 103 H Respiratory Rate 16 17 16 Blood Pressure 144/66 H 138/60 140/64 Pulse Oximetry 93 L 98 93 L 01/25/19 11:00 01/25/19 12:00 01/25/19 13:00 Temperature 99.4 F Pulse Rate 86 83 82 Respiratory Rate 17 16 17 Blood Pressure 145/67 H 164/71 H 173/73 H Pulse Oximetry 94 L 92 L 92 L 01/25/19 14:00 01/25/19 15:00 01/25/19 16:00 Temperature 99.4 F Pulse Rate 106 H 96 H 103 H Respiratory Rate 15 19 16 Blood Pressure 159/65 H 132/59 L Pulse Oximetry 01/25/19 17:00 01/25/19 17:33 01/25/19 18:00 Temperature Pulse Rate 82 89 Respiratory Rate 17 20 Blood Pressure 154/67 H 163/69 H Pulse Oximetry 95 01/25/19 19:00 01/25/19 20:00 01/25/19 21:00 Temperature 99.7 F H Pulse Rate 101 H 96 H 91 H Respiratory Rate 23 24 18 Blood Pressure 148/103 H 139/63 147/67 H Pulse Oximetry 01/25/19 22:00 01/25/19 23:00 01/26/19 00:00 Temperature 99.5 F Pulse Rate 93 H 85 92 H Respiratory Rate 21 20 21 Blood Pressure 153/68 H 152/67 H 158/72 H Pulse Oximetry 01/26/19 01:00 01/26/19 02:00 01/26/19 03:00 Temperature Pulse Rate 82 90 81 Respiratory Rate 18 17 19 Blood Pressure 144/70 H 183/82 H 147/66 H Pulse Oximetry 01/26/19 04:00 Temperature 98.0 F Pulse Rate 81 Respiratory Rate 13 Blood Pressure 177/72 H Pulse Oximetry Intake & Output 01/25/19 01/26/19 01/26/19 18:59 06:59 18:59 Intake Total 480 / 480 Output Total 575 / 575 Balance 480 / 480 -575 / -575 Weight 62.2 kg Intake: Oral 480 / 480 Output: Urine Amount (Catheter) 575 / 575 Indwelling Temp Sensing 575 / 575 Catheter Other: # Voids 4 Date of Last Bowel Movement 01/22/19 01/22/19 # Bowel Movements 0 - Additional findings Additional findings: Left shoulder dressing C/D/I sling and swath in place numbness to 1st, 2nd, and 3rd digits (which she had prior to sx) good movement of digits and wrist good sensation of deltoid but no active contraction 2+ radial pulses - Urinary Catheter Management Indwelling Temp Sensing Catheter Cath placed during this visit: no Results - Labs CBC & Chem 7: 01/26/19 04:57 Laboratory Results - last 24 hr 01/26/19 01/26/19 04:57 04:57 WBC 6.7 RBC 2.83 L Hgb 9.2 L Hct 26.6 L MCV 94.2 MCH 32.7 MCHC 34.7 RDW 13.2 Plt Count 172 MPV 7.7 Neut % (Auto) 66.3 Lymph % (Auto) 19.4 [place] % (Auto) 9.2 H Eos % (Auto) 4.7 H Baso % (Auto) 0.4 Neut # (Auto) 4.4 Lymph # (Auto) 1.3 [place] # (Auto) 0.6 Eos # (Auto) 0.3 Baso # (Auto) 0.0 WBC Differential . Differential Comment Auto diff final PT 12.0 H INR 1.2 - Imaging Impressions Head CT 01/25/19 10:12 CONCLUSION: 1. Large area of infarction involving the medial right temporal lobe and occipital lobe as well as the right thalamus and right cerebellum. No evidence of hemorrhagic transformation. . . Assessment and Plan - Assessment and Plan POD #4 Left proximal humerus removal of internal fixation and conversion to reverse total shoulder arthroplasty, Ortho status stable It is noted patient has good sensation of deltoid but no active contraction - monitor Pain management - [place] Physical therapy - Pendulum exercises TID, ok to remove sling/swathe for comfort No change dressing x 1 week. If there is significant drainage, then remove dressing (clean with alcohol and apply a new dressing daily) Change in disposition and post surgical vision loss (which does seem to have improved) Right posterior cerebral artery infarct -appreciate Neurology, Cardiology and Medical's involvement in case Ok to resume anti-coagulation from an orthopedic standpoint. Cardiology/Neurology recommending Coumadin x2 months and then transition to Eliquis. Discharge to snf today
[2019-01-26] MEDS: Sod Chloride 0.9% Inj 1,000 ML IV.CONT SCH ×2 (08:38→16:43)
[2019-01-26] MEDS: Folic Acid 1 MG Tablet PO SCH (08:38)
[2019-01-26] MEDS: Heparin - SQ 10,000 UNITS/ML Vial SQ SCH (08:39)
[2019-01-26] MEDS: Ascorbic Acid 500 MG Tablet PO SCH (08:40)
[2019-01-26] MEDS: Multivitamin/Minerals Therapeutic Tablet PO SCH (08:40)
[2019-01-26] MEDS: Calcium/Vitamin D 250/125 MG Tablet PO SCH (08:40)
[2019-01-26] MEDS: Senna/Docusate Sodium 8.6/50 MG Tablet PO SCH (08:40)
[2019-01-26 11:42] VITALS: RESP 20
[2019-01-26 15:54] VITALS: BP 154/67; PULSE 83
--- NOTE | 2019-01-26 16:14 | XR ---
EXAM DATE: 01/26/2019 4:03 PM EST AGE/SEX: 88 years / Female INDICATIONS: Constipation CLINICAL DATA: This is the patient's subsequent encounter. Patient reports that signs and symptoms h ave been present for 4 - 6 days and indicates a pain score of 0/10. MEDICAL/SURGICAL HISTORY: Cardiovascular disease. right brain infarct, left shoulder fracture Appendectomy. Aortic valve replaced, left shoulder [place] [facility] [place]/03/2017. . FINDINGS: Single frontal view the abdomen demonstrates air within bowel in a nonobstructive pattern. No organo megaly is identified. There is a 10 mm ovoid density in the right pelvis of uncertain etiology. It is not visualized on the prior CT examination. No abnormal mass effect is appreciated. There is calcifi cation of the abdominal aorta. Degenerative changes are present throughout the lumbar spine. No acute osseous abnormality is seen. CONCLUSION: 1. No acute abdominal abnormality is identified. 2. 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 Electronically signed by: Damien Harrington MD Board Certified Radiologist 01/26/2019 4:12 PM EST
== END 2019-01-26 19:25 | DRG 483 ==
LOC: HSDI 06:49 → N06 16:50 → N03 01-23 13:55
PROVIDERS: ADMIT Orthopaedic Surgery Sports Medicine; ATTEND Orthopaedic Surgery Sports Medicine
CPT/HCPCS: 70450; 70496; 70498; 70553; 73030; 74000; 74018; 80061; 82435; 82550; 82552; 82565; 82607; 82947; 84132; 84295; 84439; 84443; 84484; 84520; 85014; 85018; 85025; 85610; 86850; 86900; 86901; 93225; 93308; 94150; 97110; 97116; 97162; 97164; 97530; A9585; C1776; C9290; J0690; J1170; J1580; J1644; J2250; J2370; J2405; J2704; J2710; J2795; J3010; J3370; J7030; J7050; J7120; Q9967